=== PATIENT | male | born 1955 | race Caucasian/White ===

== ENCOUNTER 2017-05-15 11:09 | Emergency (ER) | payer BC ==
[2017-05-15 11:27] VITALS: BP 130/83
[2017-05-15] MEDS ORDERED: Colchicine 0.6 MG Tab PO ONE ×2 (12:01→12:10)
[2017-05-15] MEDS ORDERED: predniSONE 20 MG Tab PO ONE (12:01)
--- NOTE | 2017-05-15 12:08 | EDM.PDOC ---
ED HPI GENERAL MEDICAL PROBLEM - General Chief Complaint: Lower Extremity Injury/Pain Stated Complaint: GOUT Time Seen by Provider: 05/15/17 11:39 Source of Information: Reports: Patient History Limitations: Reports: No Limitations - History of Present Illness INITIAL COMMENTS - FREE TEXT/NARRATIVE: Patient is a 62-year-old male with a history of type 2 diabetes, gout, traumatic brain injury, hypertension, and hypercholesterolemia. Patient states this past week noticed some pain and redness to the right great toe that has extended to the dorsal aspect of foot. Findings consistent for gout. He's had similar symptoms in the past. Last gout attack occurred to left great toe. Last episode was December 2016. Normally patient takes colchicine and prednisone for resolution of gout. Patient has decreased his red meat intake. Denies any alcohol use. Denies any fever, chills, nausea/vomiting, open sores to his feet, or any additional complaints. Right Feet Pain Score (Numeric/FACES): 8 - Related Data Allergies Allergy/AdvReac Type Severity Reaction Status Date / Time No Known Allergies Allergy Verified 12/28/15 13:32 Home Meds: Home Meds Aspirin [Halfprin] 81 mg PO DAILY 05/15/17 [History] Colchicine 0.6 mg PO ONETIME #1 capsule 05/15/17 [Rx] Insulin Glarg,Human.Rec.Analog [LantUS Solostar] 25 unit INJECT DAILY 05/15/17 [ History] Levothyroxine [Synthroid] 112 mcg PO DAILY 05/15/17 [History] Lisinopril 5 mg PO DAILY 05/15/17 [History] Pravastatin [Pravachol] 40 mg PO DAILY 05/15/17 [History] Prednisone [IMW: predniSONE] 40 mg PO WITHBREAKFAST #10 tab 05/15/17 [Rx] Past Medical History Cardiovascular History: Reports: High Cholesterol, Hypertension Respiratory History: Reports: Other (See Below) Other Respiratory History: 2 pneumonthorax Neurological History: Reports: Other (See Below) Other Neuro History: traumatic brain injury from a fall Psychiatric History: Reports: Depression Endocrine/Metabolic History: Reports: Diabetes, Type II - Past Surgical History Musculoskeletal Surgical History: Reports: Other (See Below) Social & Family History - Tobacco Use Smoking Status *Q: Former Smoker Used Tobacco, but Quit: Yes Month Tobacco Last Used: 20 - Caffeine Use Caffeine Use: Reports: Coffee, Soda - Recreational Drug Use Recreational Drug Use: No Review of Systems - Review of Systems Review Of Systems: ROS reveals no pertinent complaints other than HPI. ED EXAM, GENERAL - Physical Exam Exam: See Below Exam Limited By: No Limitations General Appearance: Alert, WD/WN, No Apparent Distress Ears: Hearing Grossly Normal Nose: Normal Inspection Throat/Mouth: Normal Voice, No Airway Compromise Neck: Normal Inspection, Supple Respiratory/Chest: No Respiratory Distress, Lungs Clear, Normal Breath Sounds, No Accessory Muscle Use, Chest Non-Tender Cardiovascular: Normal Peripheral Pulses, Regular Rate, Rhythm Peripheral Pulses: 2+: Radial (R), Posterior Tibial (L), Posterior Tibial (R) GI/Abdominal: Normal Bowel Sounds Extremities: Other (Right foot: Mild redness noted to the right great toe and dorsum of the foot. Minimal swelling. Pain with palpation and movement of the great toe. No open sores present.) Neurological: Alert, Oriented, CN II-XII Intact, Normal Cognition, No Motor/ Sensory Deficits Psychiatric: Normal Affect, Normal Mood Skin Exam: Warm, Dry, Intact, No Rash Course - Vital Signs Last Recorded V/S: Last Vital Signs Temp 97.8 F 05/15/17 11:26 Pulse 86 05/15/17 11:26 Resp 20 05/15/17 11:26 BP 130/83 05/15/17 11:26 Pulse Ox 95 05/15/17 11:26 - Orders/Labs/Meds Meds: Medications Discontinued Medications Generic Name Dose Route Start Last Admin Trade Name Sharlene PRN Reason Stop Dose Admin Colchicine 0.6 mg 05/15/17 12:01 05/15/17 12:10 Colcrys PO 05/15/17 12:02 0.6 mg ONETIME ONE Administration Colchicine 0.6 mg 05/15/17 12:10 05/15/17 12:23 Colcrys PO 05/15/17 12:11 0.6 mg ONETIME ONE Administration Prednisone 40 mg 05/15/17 12:01 05/15/17 12:11 Prednisone PO 05/15/17 12:02 40 mg ONETIME ONE Administration - Re-Assessments/Exams Free Text/Narrative Re-Assessment/Exam: Findings on examination consistent for gout. He has had similar symptoms consistent for gout. No lab work will be obtained. Ordered prednisone 40mgPO and colchicine 1.2 mg po. Patient will be discharged home with a prescription for prednisone and also colchicine 0.6 mg 1 tablet to take 2 hours later upon discharge from the E.D. Departure - Departure Time of Disposition: 12:08 Disposition: Home, Self-Care 01 Condition: Good Clinical Impression: Gout attack Qualifiers: Gout site: foot Gout etiology: unspecified cause Laterality: right Qualified Code(s): M10.9 - Gout, unspecified - Discharge Information Prescriptions: Colchicine 0.6 mg PO ONETIME #1 capsule Prednisone [IMW: predniSONE] 40 mg PO WITHBREAKFAST #10 tab Instructions: Gout, [id number] Referrals: [place] Christian PA-C [Primary Care Provider] - Forms: ED Department Discharge Additional Instructions: Take the prednisone 40 mg every a.m. for the next 5 days. I provided a perception for colchicine 0.6 mg one tab by mouth 2 hours upon discharge from the ED today. This is a one-time dose. Refrain from any activities that cause worsening pain. Take both medications with food and plenty of water. Blood sugar will elevate with taking the prednisone please monitor. Follow-up with PCP this coming week if symptoms have not drastically improved in 2-3 days. Follow-up with your PCP to discuss starting allopurinol. Refrain from Red meat, seafood, alcohol, beer, wine, hard liquor, food/drinks that have high fructose corn syrup. Return to the ED as needed for any new or worsening symptoms.
== END 2017-05-15 12:33 | disposition home or self-care (01) ==
LOC: JD.ED 11:09
DX: M10.9 Gout, unspecified (principal); E78.00 Pure hypercholesterolemia, unspecified; I10 Essential (primary) hypertension; E11.9 Type 2 diabetes mellitus without complications; Z79.82 Long term (current) use of aspirin; Z79.4 Long term (current) use of insulin; Z79.899 Other long term (current) drug therapy; Z87.891 Personal history of nicotine dependence
CPT/HCPCS: 99283; A9270

== ENCOUNTER 2017-08-15 11:30 | Emergency (ER) | payer BC ==
[2017-08-15 11:45] VITALS: BP 141/87
--- NOTE | 2017-08-15 12:14 | EDM.PDOC ---
ED HPI GENERAL MEDICAL PROBLEM - General Chief Complaint: Lower Extremity Injury/Pain Stated Complaint: RT FOOT/ANKLE PAIN Time Seen by Provider: 08/15/17 12:13 Source of Information: Reports: Patient History Limitations: Reports: No Limitations - History of Present Illness INITIAL COMMENTS - FREE TEXT/NARRATIVE: 62-year-old male presents to the ED with severe pain and swelling of his right ankle over the last 4 days. No known injuries. History of gout many times in the past. Currently on allopurinol 100 mg a day which is likely an insufficient dose for him. He has been eating more red meat over the holidays particularly steak or hamburger from [employer]. In the past he reports his blood sugars do not seem to dramatically increase while on prednisone. Comes in in a wheelchair and using crutches to ambulate. Onset: Gradual (Started 4 days ago) Onset Date: 08/11/17 Duration: Day(s): Location: Reports: Lower Extremity, Right (Right lower extremity primarily the ankle around the Achilles tendon i.e. the calcaneal talar joint.) Quality: Reports: Ache, Sharp, Stabbing Severity: Severe (Pain is currently 8 out of 10.) Improves with: Reports: Rest Worsens with: Reports: Movement Context: Reports: Other (Spontaneous occurrence). Denies: Activity, Exercise, Lifting, Sick Contact, Trauma Associated Symptoms: Reports: No Other Symptoms Treatments [employer]: Reports: Other (see below) (Did take Motrin the last few days.) Right Feet Pain Score (Numeric/FACES): 7 - Related Data Allergies Allergy/AdvReac Type Severity Reaction Status Date / Time No Known Allergies Allergy Verified 12/28/15 13:32 Home Meds: Home Meds Aspirin [Halfprin] 81 mg PO DAILY 05/15/17 [History] Insulin Glarg,Human.Rec.Analog [LantUS Solostar] 25 unit INJECT DAILY 05/15/17 [ History] Levothyroxine [Synthroid] 112 mcg PO DAILY 05/15/17 [History] Lisinopril 5 mg PO DAILY 05/15/17 [History] Pravastatin [Pravachol] 40 mg PO DAILY 05/15/17 [History] Allopurinol [Zyloprim] 100 mg PO DAILY 08/15/17 [History] Colchicine 0.6 mg PO Q1H #2 capsule 08/15/17 [Rx] Diclofenac Sodium [Voltaren] 50 mg PO ONETIME #24 tab.ec 08/15/17 [Rx] Prednisone [IJD: predniSONE] 20 mg PO BID #11 tab 08/15/17 [Rx] oxyCODONE HCl/Acetaminophen [Percocet 5-325 mg Tablet] 1 - 2 each PO Q4H PRN # 14 tablet 08/15/17 [Rx] Past Medical History Cardiovascular History: Reports: High Cholesterol, Hypertension Respiratory History: Reports: Other (See Below) Other Respiratory History: 2 pneumonthorax Neurological History: Reports: Other (See Below) Other Neuro History: traumatic brain injury from a fall Psychiatric History: Reports: Depression Endocrine/Metabolic History: Reports: Diabetes, Type II - Past Surgical History Musculoskeletal Surgical History: Reports: Other (See Below) Social & Family History - Tobacco Use Smoking Status *Q: Former Smoker Used Tobacco, but Quit: Yes Month Tobacco Last Used: 20 - Caffeine Use Caffeine Use: Reports: Coffee, Tea - Recreational Drug Use Recreational Drug Use: No - Living Situation & Occupation Living situation: Reports: Occupation: Retired Review of Systems - Review of Systems Review Of Systems: See Below Constitutional: Reports: No Symptoms Eyes: Reports: No Symptoms Ears: Reports: Other Nose: Reports: No Symptoms Mouth/Throat: Reports: No Symptoms Respiratory: Reports: Shortness of Breath (On exertion.) Cardiovascular: Denies: Chest Pain GI/Abdominal: Reports: No Symptoms Genitourinary: Reports: Other (Frequency with nocturia 3 or 4.) Musculoskeletal: Reports: Back Pain, Joint Pain (Hip pain) Skin: Reports: No Symptoms Neurological: Reports: Confusion (Ever since he had a significant closed injury from a fall off a house he has some transient confusion and problems with short- term memory.) Psychiatric: Reports: Mood Lability ED EXAM, GENERAL - Physical Exam Exam: See Below Exam Limited By: No Limitations General Appearance: Alert, WD/WN, No Apparent Distress (For a stoic fellow.) Respiratory/Chest: No Respiratory Distress, Normal Breath Sounds, No Accessory Muscle Use, Chest Non-Tender, Respiratory Distress (Tachypnea At rest. O2 sats 94%.) Cardiovascular: Normal Peripheral Pulses, Regular Rate, Rhythm, No Edema, No Murmur Peripheral Pulses: 1+: Posterior Tibial (L), Posterior Tibial (R), Dorsalis Pedis (L), Dorsalis Pedis (R) GI/Abdominal: Normal Bowel Sounds, Soft, Non-Tender, No Organomegaly, Other Extremities: Other (Examination of his right lower extremity shows marked swelling of the lateral aspect of his right ankle. Pain is localized to the calcaneal talar joint. Particularly adjacent to the Achilles tendon. Any movement of this joint causes severe pain.) Neurological: Alert ( Areas markedly warm to palpation without overlying erythema.), Oriented, CN II-XII Intact, Normal Cognition, Other. No: Normal Gait Psychiatric: Normal Affect (Patient cannot weight-bear on his right ankle at this time due to pain), Normal Mood Skin Exam: Warm, Dry, Intact, Normal Color, No Rash Course - Vital Signs Last Recorded V/S: Last Vital Signs Temp 36.6 C 08/15/17 11:44 Pulse 76 08/15/17 11:44 Resp 20 08/15/17 11:44 BP 141/87 H 08/15/17 11:44 Pulse Ox 94 L 08/15/17 11:44 - Orders/Labs/Meds Meds: Medications Discontinued Medications Generic Name Dose Route Start Last Admin Trade Name Freq PRN Reason Stop Dose Admin Colchicine 0.6 mg 08/15/17 12:25 Colcrys PO 08/15/17 12:26 ONETIME ONE - Radiology Interpretation Free Text/Narrative:: 62-year-old male presents the ED with acute onset of severe pain and swelling right ankle over the last 4 days. No known injuries. Examination reveals marked inflammation coming from the calcaneal talar joint. He has had gout many times in the past and this is what he appears to be suffering from. Plan colchicine 0.6 mg by mouth every hour for 3 consecutive hours. Prednisone 20 mg now then 20 mg twice a day for 5 more days. Voltaren 50 mg 3 times a day for 8 days. Percocet 5/3/25 milligrams tabs one or 2 every 4-6 hours for pain relief 14 tablets provided. Also advised to increase his allopurinol to 300 mg daily in about 10 days' time once the acute gout attack has settled. Ideally would be pertinent for him to follow-up in clinic and have uric acid levels checked and renal function. Departure - Departure Time of Disposition: 12:28 Disposition: Home, Self-Care 01 Condition: Fair Clinical Impression: Gout attack Qualifiers: Gout site: foot Gout etiology: unspecified cause Laterality: right Qualified Code(s): M10.9 - Gout, unspecified - Discharge Information Prescriptions: Colchicine 0.6 mg PO Q1H #2 capsule Diclofenac Sodium [Voltaren] 50 mg PO ONETIME #24 tab.ec oxyCODONE HCl/Acetaminophen [Percocet 5-325 mg Tablet] 1 - 2 each PO Q4H PRN # 14 tablet PRN Reason: pain relief. Prednisone [IJD: predniSONE] 20 mg PO BID #11 tab Referrals: [place] Christian PA-C [Primary Care Provider] - Forms: ED Department Discharge Additional Instructions: Evaluation in the emergency room today in regards to acute onset of gout in right ankle 4 days. History of recurrent bouts of gout over the last 3-4 years. Treatment is colchicine tablet 0.6 mg 1 every hour for 3 consecutive hours. Initial tablet was provided in the ED. Second medication is prednisone 20 mg now and then with breakfast and supper for 5 more days to reduce inflammation. Voltaren 50 mg 3 times a day for the next 8 days to reduce inflammation and pain. Pain pill is Percocet 12/15/24 one or 2 every 4-6 hours for pain relief until the anti-inflammatories are working well over the next 48 hours. After 10 days I would suggest increasing her allopurinol to 300 mg daily to try and prevent the gout from coming back again. Discussed this with your personal physician on next visit.
[2017-08-15] MEDS ORDERED: Colchicine 0.6 MG Tab PO ONE (12:25)
== END 2017-08-15 12:55 | disposition home or self-care (01) ==
LOC: JD.ED 11:30
DX: M10.9 Gout, unspecified (principal); E78.00 Pure hypercholesterolemia, unspecified; I10 Essential (primary) hypertension; E11.9 Type 2 diabetes mellitus without complications; Z79.82 Long term (current) use of aspirin; Z79.899 Other long term (current) drug therapy; Z87.891 Personal history of nicotine dependence
CPT/HCPCS: 99283; A9270

== ENCOUNTER 2020-07-23 22:35 | Emergency (ER) | payer MEDICARE, OTHER ==
[2020-07-23] MEDS ORDERED: Sodium Chloride 0.9% 10 ML Syringe FLUSH PRN (23:09)
--- NOTE | 2020-07-23 23:15 | EDM.PDOC ---
<Anant Lebron Neha - Last Filed: 07/24/20 04:12> ED HPI GENERAL MEDICAL PROBLEM - General Chief Complaint: Fever Stated Complaint: FEVER SOB Time Seen by Provider: 07/23/20 23:08 Source of Information: Reports: Patient History Limitations: Reports: No Limitations - History of Present Illness INITIAL COMMENTS - FREE TEXT/NARRATIVE: 65-year-old male presents to the ED for evaluation of a fever that developed after dinnertime today. Temperature at home has been anywhere from 90.8 0.6- 98.9. He denies any chills. He has developed subjective dyspnea at rest. Denies any wheeze or cough at this time. He has no known Covid 19 exposure although his next-door neighbor last week from COVID-19 illness. He denies any dysuria urgency frequency. Denies any diarrhea. To his knowledge he is not been exposed to anybody with COVID-19 illness. He came to the ED out of concern for possible developing COVID-19 illness. O2 sats at this time are 97% on room air and he appears to be in no respiratory distress. The monitor intermittently does show trigeminy pattern with PVCs. Blood pressure is 101 on 33. Of note the patient is a Type 2 insulin-dependent diabetic. Patient did receive 600 mg of ibuprofen approximately 2100 hrs. tonight. Onset: Today, Sudden Onset Date: 07/23/20 Onset Time: 12:00 Duration: Hour(s):, Constant Location: Reports: Generalized (Development of fever with no chills this afternoon and this evening.) Quality: Reports: Other Severity: Moderate (Nuys any myalgia. Feels a little lightheaded and dizzy) Improves with: Reports: Medication (Fever may be coming down after Motrin was given 2 hours ago) Worsens with: Reports: None Context: Reports: Other (Fontan's occurrence). Denies: Activity, Exercise, Lifting, Sick Contact, Trauma Associated Symptoms: Reports: No Other Symptoms, Fever/Chills, Shortness of Breath. 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 tonight.) - Related Data Allergies Allergy/AdvReac Type Severity Reaction Status Date / Time No Known Allergies Allergy Verified 07/23/20 22:46 Home Meds: Home Meds Aspirin [Halfprin] 81 mg PO DAILY 05/15/17 [History] Insulin Glarg,Human.Rec.Analog [LantUS Solostar] 25 unit INJECT DAILY 05/15/17 [History] Levothyroxine [Synthroid] 112 mcg PO DAILY 05/15/17 [History] Lisinopril 5 mg PO DAILY 05/15/17 [History] Pravastatin [Pravachol] 40 mg PO DAILY 05/15/17 [History] Allopurinol [Zyloprim] 100 mg PO DAILY 08/15/17 [History] Doxycycline [Vibra-Tabs] 100 mg PO Q12HR #20 tab 07/24/20 [Rx] Past Medical History HEENT History: Reports: Hard of Hearing, Impaired Vision Cardiovascular History: Reports: High Cholesterol, Hypertension Respiratory History: Reports: Other (See Below) Other Respiratory History: 2 pneumonthorax Gastrointestinal History: Reports: None Genitourinary History: Reports: None Musculoskeletal History: Reports: Gout Neurological History: Reports: Other (See Below) Other 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 Immunologic History: Reports: None Oncologic (Cancer) History: Reports: None Dermatologic History: Reports: None - Infectious Disease History Infectious Disease History: Reports: Chicken Pox, Mumps - Past Surgical History Head Surgeries/Procedures: Reports: None HEENT Surgical History: Reports: Tonsillectomy GI Surgical History: Reports: None Male Surgical History: Reports: None Musculoskeletal Surgical History: Reports: Other (See Below) Other Musculoskeletal Surgeries/Procedures:: right femur fracture-fractured ribs. Patient fell from a second story of his home in 2006 and suffered I believe fractures to 10 out of 12 ribs on one side and multiple fractures in the other side with flail chest. He broke his right femur and hip. He had a traumatic brain injury at that time as well. He spent I believe over 3 months in hospital and then several months in rehab before he was able to come home. Social & Family History - Family History Family Medical History: No Pertinent Family History - Tobacco Use Tobacco Use Status *Q: Never Tobacco User Used Tobacco, but Quit: Yes Month/Year Tobacco Last Used: 08/1969 - Caffeine Use Caffeine Use: Reports: Coffee, Soda - Recreational Drug Use Recreational Drug Use: No - Living Situation & Occupation Living situation: Reports: Occupation: Retired ED ROS GENERAL - Review of Systems Review Of Systems: See Below Constitutional: Reports: Fever. Denies: Chills, Malaise, Weakness, Fatigue, Decreased Appetite, Weight Loss HEENT: Reports: Glasses (Reading.) Respiratory: Reports: Shortness of Breath (No shortness of breath today. 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 He reports that he can swim the entire length of the pool in about 43 seconds while holding his breath.). Denies: Wheezing, Pleuritic Chest Pain, Cough, Sputum, Hemoptysis Cardiovascular: Reports: Blood Pressure Problem, Lightheadedness. Denies: Chest Pain, Claudication (Tends to run on the low side.), Dyspnea on Exertion, Edema, Orthopnea, Palpitations Endocrine: Reports: No Symptoms GI/Abdominal: Reports: No Symptoms. Denies: Constipation, Diarrhea, Nausea, Vomiting : Reports: No Symptoms, Other (He states he has good urinary flow and nocturia maybe once.) Musculoskeletal: Reports: Other (Low back pain neck pain shoulder pain and knee pain once in a while. Occasionally his right hip will give him some pain as well.) Skin: Reports: No Symptoms Neurological: Reports: Other (Patient did suffer a traumatic brain injury in 2006 after he fell from the second story of his home. He has trouble primarily with numbers and short-term memory.). Denies: Confusion, Dizziness, Headache, Numbness, Paresthesia, Seizure, Syncope, Tingling, Tremors, Difficulty Walking, Weakness Psychiatric: Reports: No Symptoms Hematologic/Lymphatic: Reports: No Symptoms Immunologic: Reports: No Symptoms ED EXAM, GENERAL - Physical Exam Exam: See Below Exam Limited By: No Limitations General Appearance: Alert, WD/WN, No Apparent Distress, Other (He recollects me very well. Temperature is 36.1 with a heart rate of 120 with frequent PVCs almost in a trigeminal pattern intermittently. Respiratory of 16 with O2 sats of 97% room air BP 133/84.) Eye Exam: Bilateral Eye: Normal Inspection (No scleral icterus or blepharal pallor.), PERRL Ears: Normal External Exam, Normal TMs Throat/Mouth: Normal Inspection, Normal Lips, Normal Oropharynx, Other Head: Atraumatic, Normocephalic, Other (Is moist) Neck: Normal Inspection ( no overt signs of any recent head or facial trauma), Limited Range of Motion. No: Carotid Bruit, Lymphadenopathy (L), Lymphadenopathy (R) (But is on lateral rotation with near full range of motion), Thyromegaly Respiratory/Chest: No Respiratory Distress, Lungs Clear, Normal Breath Sounds, No Accessory Muscle Use. No: Rales, Rhonchi, Wheezing Cardiovascular: Normal Peripheral Pulses, Regular Rate, Rhythm, No Edema, No Gallop, No Murmur, No Rub Peripheral Pulses: 2+: Posterior Tibial (L), Posterior Tibial (R), Dorsalis Pedis (L), Dorsalis Pedis (R), 3+: Carotid (L), Carotid (R) GI/Abdominal: Normal Bowel Sounds, Soft, Non-Tender, No Organomegaly, No Mass, Pelvis Stable, Other (No surgical scars.). No: Guarding, Rigid, Rebound (Male) Exam: No Hernia Back Exam: Normal Inspection, Full Range of Motion. No: CVA Tenderness (L), CVA Tenderness (R) Extremities: Normal Inspection, Normal Range of Motion, Non-Tender, No Pedal Edema, Other Neurological: Alert, Oriented (Minutes of mild arthritic changes both knees.), CN II-XII Intact, Normal Cognition Psychiatric: Normal Affect, Normal Mood Skin Exam: Warm, Dry, Intact, Normal Color, No Rash, Other (She does clinically felt warm to palpation to me.) #1 Interpretation EKG Date: 07/23/20 Time: 23:24 (Frequent unifocal PVCs quite Kasie pattern on this ECG) Rhythm: Other (Sinus tachycardia) Rate (Beats/Min): 112 [place]: Normal P-Wave: Present (First-degree AV block .) QRS: Other (Decreased voltage in limb and precordial leads. There is mild early R wave transition V2 consider septal hypertrophy pattern. There are Q waves leads II, III and aVF consider old inferior wall myocardial infarction.) QT: Prolonged (Minimally prolonged) Course - Radiology Interpretation Free Text/Narrative:: 65-year-old male presents to the ED for evaluation of a fever identified at home with temperatures of 98.6-98.9 since noon hour today. No chills. Subjective shortness of breath. No known exposure to COVID-19 illness although his neighbor did from COVID-19 illness last week. Examination is benign. Lungs are clear clinically he does feel warm to palpation but nurses recorded temperature of 36.1 it will be rechecked in half an hour. His monitor shows a trigeminal PVC pattern intermittently which seems to settled after he was settled in bed. Blood pressure is low at 101 133. Plan routine labs. Coronavirus screen will be sent out to [facility] since his oxygen levels are 95 to 97% room air. Chest x-ray will be obtained. Serum ferritin D-dimer troponin and LDH will be obtained as well. - Re-Assessments/Exams Free Text/Narrative Re-Assessment/Exam: 07/24/20 00:52 chest x-ray done portably reveals slightly hyperinflated lung gan. There is an infiltrate in the right base of the right lower lung. Prominence of the right pulmonary artery appreciated. Cardiac silhouette is upper limits of normal. Prominence of the thoracic aorta appreciated suggesting possible mild aneurysm. Appears to be slight blunting of the left costophrenic angle however. 07/24/20 00:55 Hematology reveals a normal white count at 9.55. Differential shows 70% neutrophils no bands cells reported. Hemoglobin 13.7 with hematocrit of 42.2. Platelet count is 331,000. PT is 11.2 with an INR of 1.05. PTT is 26.7 D-dimer is mildly elevated at 0.86. Sodium 137 with potassium of 3.6. Chloride 103 with a bicarb of 22. Anion gap is 15.6. BUN is 27 with a creatinine of 1.9. GFR is 36 i.e. stage IIIb renal insufficiency. Glucose elevated at 182. Patient is known to be a type II diabetic. Hemoglobin A1c is excellent at 6.9. Calcium is 8.7 with a magnesium of 1.8. Serum ferritin is normal at 140 liver function is normal troponin is 0.020. LDH is 97. C- reactive protein mildly elevated at 2.0. BNP is 150. Very minimally elevated total protein 7.3 with an albumin fraction of 3.6. TSH is 2.48. Urinalysis is pending. Renal function is not good enough to tolerate CT pulmonary angiogram to rule out DVT. Patient's O2 sats are 97% on room air and it is felt highly unlikely that he has a DVT. Worrisome changes are for that of developing COVID- 19 illness which would elevate his D-dimer. COVID-19 screen will be a send out to public health since his O2 sats are maintained in the upper 90s. 07/24/20 02:17 patient was finally able to pass a little bit of urine and I was able to dip it in the ED. It reveals no signs of leukocyte esterase or blood to suggest an underlying infective process. Due to the minimal infiltrate right base of lung I am going to place him on antibiotic although he may well be brewing COVID-19 illness. Of note there are no other chest x-rays in the system to compare to. This could be also mild scarring from his previous traumatic chest wall injury. I am going to place him on doxycycline 100 mg twice daily for 10 days to cover for atypical organisms that may cause pneumonia. Initial dose will be provided in the ED. did advise that if his COVID-19 screen returns positive he is to return to the ED as he is a candidate for IV Regeneron medication which we have available the last few days. This may prevent more serious form of the illness. O2 sats at the time of discharge were 97% room air Departure - Departure Time of Disposition: 02:21 Disposition: Home, Self-Care 01 Condition: Fair Clinical Impression: Acute febrile illness Pneumonia Qualifiers: Pneumonia type: due to unspecified organism Laterality: right Lung location: lower lobe of lung Qualified Code(s): J18.9 - Pneumonia, unspecified organism - Discharge Information *PRESCRIPTION DRUG MONITORING PROGRAM REVIEWED*: Not Applicable *COPY OF PRESCRIPTION DRUG MONITORING REPORT IN PATIENT YG: Not Applicable Prescriptions: Doxycycline [Vibra-Tabs] 100 mg PO Q12HR #20 tab Instructions: COVID-19 Frequently Asked Questions, COVID-19, Fever, Adult, [id number] Referrals: Mario Hughes MD [Primary Care Provider] - Forms: ED Department Discharge Additional Instructions: Evaluation in the emergency room tonight in regards to development of acute onset of fever today after dinnertime. Temperatures seem to be gradually go up as the day went on. No other signs of illness such as cough sputum production trouble passing her water no diarrhea no vomiting. Concern is for possible COVID-19 illness and COVID-19 screen has been carried out and sent to public health in the morning. Results should be available usually within 48 hours time. In the meantime you need to self quarantine at home and no one should visit your home until we know for sure whether or not the COVID-19 is negative. If it is positive you will have to self quarantine for 14 days. If it turns positive I want you to return to the emergency room as you are a candidate for IV Regeneron which is a monoclonal antibody x2 against the COVID-19 virus. This may prevent you from developing some severe form of COVID-19 illness. Urinalysis proved to be negative for any signs of infection. Lab work revealed a normal white count at this point time and no other markers were positive for COVID-19 illness at this time. However it is very early in your disease process. There is a minimal infiltrate base of the right lung and consideration of developing pneumonia is present. This could represent early COVID-19 illness as well. However I am going to have you take antibiotic doxycycline 100 mg twice daily for the next 10 days to clear up any bacterial pneumonia that may be developing. Continue Motrin 600 mg every 6 hours as needed for fever relief. Again if your COVID-19 screen returns positive you would need to return to the emergency department. We will either call you or public [facility] department will call you with the result likely on Tuesday. Sepsis Event Note (ED) - Evaluation Sepsis Screening Result: No Definite Risk <Francia Crowley V - Last Filed: 07/24/20 12:37> Course - Vital Signs Last Recorded V/S: Last Vital Signs Temp 97.0 F 07/23/20 22:51 Pulse 97 07/24/20 02:30 Resp 18 07/24/20 02:30 BP 133/84 07/23/20 22:51 Pulse Ox 96 07/24/20 02:30 - Orders/Labs/Meds Orders: Active Orders 24 hr Category Date Time Status Chest 1V Frontal [CR] Stat Exams 07/23/20 23:09 Taken CORONAVIRUS COVID-19 PCR PHL Stat Lab 07/24/20 01:15 Received CULTURE BLOOD [BC] Stat Lab 07/23/20 23:30 Results CULTURE BLOOD [BC] Stat Lab 07/23/20 23:43 Received Blood Culture x2 Reflex Set [OM.PC] Stat Oth 07/23/20 23:09 Ordered Peripheral IV Insertion Adult [OM.PC] Stat Oth 07/23/20 23:10 Ordered Labs: Laboratory Tests 07/23/20 07/23/20 07/23/20 Range/Units 23:30 23:30 23:30 WBC 9.55 H (4.23-9.07) K/mm3 RBC 4.86 (4.63-6.08) M/mm3 Hgb 13.7 (13.7-17.5) gm/dl Hct 42.2 (40.1-51.0) % MCV 86.8 (79.0-92.2) fl MCH 28.2 (25.7-32.2) pg MCHC 32.5 (32.2-35.5) g/dl RDW Std Deviation 49.9 H (35.1-43.9) fL Plt Count 331 D (163-337) K/mm3 MPV 9.8 (9.4-12.3) fl Neut % (Auto) 78.0 H (34.0-67.9) % Lymph % (Auto) 11.3 L (21.8-53.1) % [place] % (Auto) 8.2 (5.3-12.2) % Eos % (Auto) 2.1 (0.8-7.0) Baso % (Auto) 0.2 (0.1-1.2) % Neut # (Auto) 7.45 H (1.78-5.38) K/mm3 Lymph # (Auto) 1.08 L (1.32-3.57) K/mm3 [place] # (Auto) 0.78 (0.30-0.82) K/mm3 Eos # (Auto) 0.20 (0.04-0.54) K/mm3 Baso # (Auto) 0.02 (0.01-0.08) K/mm3 PT 11.2 (9.7-12.0) SECONDS INR 1.05 APTT 26.7 (21.7-31.4) SECONDS D-Dimer, Quantitative (0.19-0.50) mg/L Sodium 137 (136-145) mEq/L Potassium 3.6 (3.5-5.1) mEq/L Chloride 103 (98-107) mEq/L Carbon Dioxide 22 (21-32) mEq/L Anion Gap 15.6 H (5-15) BUN 27 H (7-18) mg/dL Creatinine 1.9 H (0.7-1.3) mg/dL Est Cr Clr Drug Dosing 43.86 mL/min Estimated GFR (MDRD) 36 (>60) mL/min BUN/Creatinine Ratio 14.2 (14-18) Glucose 182 H (80-115) mg/dL Hemoglobin A1c (4.50-6.20) % Calcium 8.7 (8.5-10.1) mg/dL Magnesium 1.8 (1.8-2.4) mg/dl Ferritin (26-388) ng/ml Total Bilirubin 0.5 (0.2-1.0) mg/dL AST 17 (15-37) U/L ALT 35 (16-63) U/L Alkaline Phosphatase 93 (46-116) U/L Lactate Dehydrogenase 97 (85-227) U/L Troponin I 0.020 (0.00-0.056) ng/mL C-Reactive Protein 2.0 H* (<1.0) mg/dL NT-Pro-B Natriuret Pep (0-125) pg/mL Total Protein 7.3 (6.4-8.2) g/dl Albumin 3.6 (3.4-5.0) g/dl Globulin 3.7 gm/dL Albumin/Globulin Ratio 1.0 (1-2) TSH 3rd Generation (0.358-3.74) uIU/mL Urine Color (Yellow) Urine Appearance (Clear) Urine pH (5.0-8.0) Ur Specific [place] (1.005-1.030) Urine Protein (Negative) Urine Glucose (UA) (Negative) Urine Ketones (Negative) Urine Occult Blood (Negative) Urine Nitrite (Negative) Urine Bilirubin (Negative) Urine Urobilinogen (0.2-1.0) Ur Leukocyte Esterase (Negative) U Hyaline Cast (Auto) (0-5) /lpf Urine RBC (0-5) /hpf Urine WBC (0-5) /hpf Ur Squamous Epith Cells (0-5) /hpf Amorphous Sediment (NOT SEEN) /hpf Urine Bacteria (FEW) /hpf Urine Mucus (FEW) /hpf 07/23/20 07/23/20 07/23/20 Range/Units 23:30 23:30 23:30 WBC (4.23-9.07) K/mm3 RBC (4.63-6.08) M/mm3 Hgb (13.7-17.5) gm/dl Hct (40.1-51.0) % MCV (79.0-92.2) fl MCH (25.7-32.2) pg MCHC (32.2-35.5) g/dl RDW Std Deviation (35.1-43.9) fL Plt Count (163-337) K/mm3 MPV (9.4-12.3) fl Neut % (Auto) (34.0-67.9) % Lymph % (Auto) (21.8-53.1) % [place] % (Auto) (5.3-12.2) % Eos % (Auto) (0.8-7.0) Baso % (Auto) (0.1-1.2) % Neut # (Auto) (1.78-5.38) K/mm3 Lymph # (Auto) (1.32-3.57) K/mm3 [place] # (Auto) (0.30-0.82) K/mm3 Eos # (Auto) (0.04-0.54) K/mm3 Baso # (Auto) (0.01-0.08) K/mm3 PT (9.7-12.0) SECONDS INR APTT (21.7-31.4) SECONDS D-Dimer, Quantitative 0.86 H (0.19-0.50) mg/L Sodium (136-145) mEq/L Potassium (3.5-5.1) mEq/L Chloride (98-107) mEq/L Carbon Dioxide (21-32) mEq/L Anion Gap (5-15) BUN (7-18) mg/dL Creatinine (0.7-1.3) mg/dL Est Cr Clr Drug Dosing mL/min Estimated GFR (MDRD) (>60) mL/min BUN/Creatinine Ratio (14-18) Glucose (80-115) mg/dL Hemoglobin A1c (4.50-6.20) % Calcium (8.5-10.1) mg/dL Magnesium (1.8-2.4) mg/dl Ferritin 140 (26-388) ng/ml Total Bilirubin (0.2-1.0) mg/dL AST (15-37) U/L ALT (16-63) U/L Alkaline Phosphatase (46-116) U/L Lactate Dehydrogenase (85-227) U/L Troponin I (0.00-0.056) ng/mL C-Reactive Protein (<1.0) mg/dL NT-Pro-B Natriuret Pep 150 H (0-125) pg/mL Total Protein (6.4-8.2) g/dl Albumin (3.4-5.0) g/dl Globulin gm/dL Albumin/Globulin Ratio (1-2) TSH 3rd Generation (0.358-3.74) uIU/mL Urine Color (Yellow) Urine Appearance (Clear) Urine pH (5.0-8.0) Ur Specific [place] (1.005-1.030) Urine Protein (Negative) Urine Glucose (UA) (Negative) Urine Ketones (Negative) Urine Occult Blood (Negative) Urine Nitrite (Negative) Urine Bilirubin (Negative) Urine Urobilinogen (0.2-1.0) Ur Leukocyte Esterase (Negative) U Hyaline Cast (Auto) (0-5) /lpf Urine RBC (0-5) /hpf Urine WBC (0-5) /hpf Ur Squamous Epith Cells (0-5) /hpf Amorphous Sediment (NOT SEEN) /hpf Urine Bacteria (FEW) /hpf Urine Mucus (FEW) /hpf 07/23/20 07/23/20 07/24/20 Range/Units 23:30 23:30 02:11 WBC (4.23-9.07) K/mm3 RBC (4.63-6.08) M/mm3 Hgb (13.7-17.5) gm/dl Hct (40.1-51.0) % MCV (79.0-92.2) fl MCH (25.7-32.2) pg MCHC (32.2-35.5) g/dl RDW Std Deviation (35.1-43.9) fL Plt Count (163-337) K/mm3 MPV (9.4-12.3) fl Neut % (Auto) (34.0-67.9) % Lymph % (Auto) (21.8-53.1) % [place] % (Auto) (5.3-12.2) % Eos % (Auto) (0.8-7.0) Baso % (Auto) (0.1-1.2) % Neut # (Auto) (1.78-5.38) K/mm3 Lymph # (Auto) (1.32-3.57) K/mm3 [place] # (Auto) (0.30-0.82) K/mm3 Eos # (Auto) (0.04-0.54) K/mm3 Baso # (Auto) (0.01-0.08) K/mm3 PT (9.7-12.0) SECONDS INR APTT (21.7-31.4) SECONDS D-Dimer, Quantitative (0.19-0.50) mg/L Sodium (136-145) mEq/L Potassium (3.5-5.1) mEq/L Chloride (98-107) mEq/L Carbon Dioxide (21-32) mEq/L Anion Gap (5-15) BUN (7-18) mg/dL Creatinine (0.7-1.3) mg/dL Est Cr Clr Drug Dosing mL/min Estimated GFR (MDRD) (>60) mL/min BUN/Creatinine Ratio (14-18) Glucose (80-115) mg/dL Hemoglobin A1c 6.90 H (4.50-6.20) % Calcium (8.5-10.1) mg/dL Magnesium (1.8-2.4) mg/dl Ferritin (26-388) ng/ml Total Bilirubin (0.2-1.0) mg/dL AST (15-37) U/L ALT (16-63) U/L Alkaline Phosphatase (46-116) U/L Lactate Dehydrogenase (85-227) U/L Troponin I (0.00-0.056) ng/mL C-Reactive Protein (<1.0) mg/dL NT-Pro-B Natriuret Pep (0-125) pg/mL Total Protein (6.4-8.2) g/dl Albumin (3.4-5.0) g/dl Globulin gm/dL Albumin/Globulin Ratio (1-2) TSH 3rd Generation 2.481 (0.358-3.74) uIU/mL Urine Color Yellow (Yellow) Urine Appearance Clear (Clear) Urine pH 5.5 (5.0-8.0) Ur Specific [place] > or = 1.030 (1.005-1.030) Urine Protein Negative (Negative) Urine Glucose (UA) Negative (Negative) Urine Ketones Trace H (Negative) Urine Occult Blood Negative (Negative) Urine Nitrite Negative (Negative) Urine Bilirubin 1+ H (Negative) Urine Urobilinogen 0.2 (0.2-1.0) Ur Leukocyte Esterase Negative (Negative) U Hyaline Cast (Auto) 0-5 (0-5) /lpf Urine RBC 0-5 (0-5) /hpf Urine WBC 0-5 (0-5) /hpf Ur Squamous Epith Cells 0-5 (0-5) /hpf Amorphous Sediment Few H (NOT SEEN) /hpf Urine Bacteria Few (FEW) /hpf Urine Mucus Few (FEW) /hpf Meds: Medications Discontinued Medications Generic Name Dose Route Start Last Admin Trade Name Freq PRN Reason Stop Dose Admin Doxycycline Hyclate 100 mg 07/24/20 02:18 07/24/20 02:41 Vibramycin PO 07/24/20 02:19 100 mg ONETIME ONE Administration Sodium Chloride 10 ml 07/23/20 23:09 07/23/20 23:37 Saline Flush FLUSH 10 ml ASDIRECTED PRN Administration Keep Vein Open - Re-Assessments/Exams Free Text/Narrative Re-Assessment/Exam: 07/24/20 12:36 I was called from microbiology and was notified that the patient's blood culture was growing out gram-positive cocci in chains at 11.3 hours. I did call the patient and was able to speak with his , and she states he has been sleeping and sluggish and that he just does not seem to be much better. She will bring him back to the ER for re-evaluation for the possibility of admission and IV antibiotics. Sepsis Event Note (ED) - Focused Exam Vital Signs: Vital Signs Pulse Resp Pulse Ox 07/24/20 02:30 97 18 96
[2020-07-23 23:16] VITALS: BP 133/84
[2020-07-24 00:45] LABS: HEMOGLOBIN A1C 6.9 % (4.50-6.20)
[2020-07-24] MEDS ORDERED: Doxycycline 100 MG Cap PO ONE (02:18)
[2020-07-24 02:48] VITALS: PULSE 97
--- NOTE | 2020-07-24 15:34 | CR ---
Chest: Portable view of the chest was obtained. Comparison: No prior chest x-rays available. Heart size and mediastinum are within normal limits for portable technique. Minimal linear densities are noted within the left midlung compatible with scarring or atelectasis. Lungs otherwise are clear with no acute parenchymal changes. Bony structures show nothing acute. Several old left-sided rib fractures are seen which are believed to be healed. Impression: 1. Nothing acute is seen. Diagnostic code #2
== END 2020-07-24 02:45 | disposition home or self-care (01) ==
LOC: JD.ED 22:35
DX: J18.9 Pneumonia, unspecified organism (principal); E78.00 Pure hypercholesterolemia, unspecified; I10 Essential (primary) hypertension; E11.9 Type 2 diabetes mellitus without complications; M10.9 Gout, unspecified; Z79.82 Long term (current) use of aspirin; Z79.4 Long term (current) use of insulin; Z79.899 Other long term (current) drug therapy; Z87.891 Personal history of nicotine dependence; Z20.828 Contact with and (suspected) exposure to other viral communicable diseases
CPT/HCPCS: 36415; 71045; 80053; 81001; 82728; 83036; 83615; 83735; 83880; 84443; 84484; 85025; 85379; 85610; 85730; 86140; 87040; 87184; 93005; 99285; A9270; U0002; 93010; 99284

== ENCOUNTER 2020-07-24 13:04 | Emergency (ER) | payer MEDICARE, OTHER ==
[2020-07-24 13:20] VITALS: PULSE 119
[2020-07-24] MEDS ORDERED: Sodium Chloride 0.9% 10 ML Syringe FLUSH PRN (13:41)
--- NOTE | 2020-07-24 14:35 | EDM.PDOC ---
ED HPI GENERAL MEDICAL PROBLEM - General Chief Complaint: General Stated Complaint: POSITIVE CULTURES Time Seen by Provider: 07/24/20 13:15 Source of Information: Reports: Patient, RN Notes Reviewed - History of Present Illness INITIAL COMMENTS - FREE TEXT/NARRATIVE: Pt was evaluated last evening in ED after experiencing chills, mild dyspnea. Work up was fairly unremarkable with no obvious infection source, normal CXR. Las called this past morning a few hrs ago that he has a positive blood culture, growing out "chains of G pos. cocci". He did have some chills again this morning. No definite fever. He still is not coughing, denies sore throat, current dyspnea, abd or back pain. No voiding problems and no known open skin lesions. Treatments BOAT TESTER: Reports: Other (see below) - Related Data Allergies Allergy/AdvReac Type Severity Reaction Status Date / Time No Known Allergies Allergy Verified 07/23/20 22:46 Home Meds: Home Meds Aspirin [Halfprin] 81 mg PO DAILY 05/15/17 [History] Insulin Glarg,Human.Rec.Analog [LantUS Solostar] 25 unit INJECT DAILY 05/15/17 [History] Levothyroxine [Synthroid] 112 mcg PO DAILY 05/15/17 [History] Lisinopril 5 mg PO DAILY 05/15/17 [History] Pravastatin [Pravachol] 40 mg PO DAILY 05/15/17 [History] Allopurinol [Zyloprim] 100 mg PO DAILY 08/15/17 [History] Amoxicillin 1,000 mg PO BID #30 capsule 07/24/20 [Rx] Doxycycline [Vibra-Tabs] 100 mg PO Q12HR #20 tab 07/24/20 [Rx] Past Medical History HEENT History: Reports: Hard of Hearing, Impaired Vision Cardiovascular History: Reports: High Cholesterol, Hypertension Respiratory History: Reports: Other (See Below) Other Respiratory History: 2 pneumonthorax Gastrointestinal History: Reports: None Genitourinary History: Reports: None Musculoskeletal History: Reports: Gout Neurological History: Reports: Other (See Below) Other 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 Immunologic History: Reports: None Oncologic (Cancer) History: Reports: None Dermatologic History: Reports: None - Infectious Disease History Infectious Disease History: Reports: Chicken Pox, Mumps - Past Surgical History Head Surgeries/Procedures: Reports: None HEENT Surgical History: Reports: Tonsillectomy GI Surgical History: Reports: None Male Surgical History: Reports: None Musculoskeletal Surgical History: Reports: Other (See Below) Other Musculoskeletal Surgeries/Procedures:: right femur fracture-fractured ribs. Patient fell from a second story of his home in 2006 and suffered I believe fractures to 10 out of 12 ribs on one side and multiple fractures in the other side with flail chest. He broke his right femur and hip. He had a traumatic brain injury at that time as well. He spent I believe over 3 months in hospital and then several months in rehab before he was able to come home. Social & Family History - Family History Family Medical History: No Pertinent Family History - Tobacco Use Tobacco Use Status *Q: Never Tobacco User - Caffeine Use Caffeine Use: Reports: Coffee - Recreational Drug Use Recreational Drug Use: No - Living Situation & Occupation Living situation: Reports: Occupation: Retired ED ROS GENERAL - Review of Systems Review Of Systems: See Below Constitutional: Reports: Fever, Chills HEENT: Reports: No Symptoms Respiratory: Reports: Shortness of Breath (last evening) Cardiovascular: Denies: Chest Pain Endocrine: Reports: Fatigue GI/Abdominal: Denies: Abdominal Pain, Nausea, Vomiting Musculoskeletal: Reports: Joint Pain (chronic). Denies: Shoulder Pain, Arm Pain Neurological: Reports: Dizziness (mild). Denies: Headache, Weakness ED EXAM, GENERAL - Physical Exam Exam: See Below General Appearance: Alert, No Apparent Distress Ears: Normal External Exam Nose: Normal Inspection Neck: Supple Respiratory/Chest: No Respiratory Distress, Lungs Clear, Normal Breath Sounds Cardiovascular: Tachycardia GI/Abdominal: Soft, Non-Tender Back Exam: No: CVA Tenderness (L), CVA Tenderness (R) Extremities: Normal Inspection, Pedal Edema (trace bilat). No: Leg Pain Neurological: No Motor/Sensory Deficits Course - Vital Signs Last Recorded V/S: Last Vital Signs Temp 97.4 F 07/24/20 18:16 Pulse 119 H 07/24/20 13:19 Resp 16 07/24/20 18:16 BP 137/86 07/24/20 18:16 Pulse Ox 96 07/24/20 18:16 - Orders/Labs/Meds Orders: Active Orders 24 hr Category Date Time Status Peripheral IV Insertion Adult [OM.PC] Stat Oth 07/24/20 13:42 Ordered Labs: Laboratory Tests 07/24/20 07/24/20 07/24/20 Range/Units 14:05 14:05 14:05 WBC 6.25 (4.23-9.07) K/mm3 RBC 4.97 (4.63-6.08) M/mm3 Hgb 13.9 (13.7-17.5) gm/dl Hct 43.1 (40.1-51.0) % MCV 86.7 (79.0-92.2) fl MCH 28.0 (25.7-32.2) pg MCHC 32.3 (32.2-35.5) g/dl RDW Std Deviation 50.2 H (35.1-43.9) fL Plt Count 292 (163-337) K/mm3 MPV 9.5 (9.4-12.3) fl Neutrophils % (Manual) 78 H (40-60) % Band Neutrophils % 0 (0-10) % Lymphocytes % (Manual) 8 L (20-40) % Atypical Lymphs % 0 % Monocytes % (Manual) 13 H (2-10) % Eosinophils % (Manual) 0 L (0.8-7.0) % Basophils % (Manual) 1 (0.2-1.2) Platelet Estimate Adequate RBC Morph Comment Normal Sodium 137 (136-145) mEq/L Potassium 3.6 (3.5-5.1) mEq/L Chloride 102 (98-107) mEq/L Carbon Dioxide 22 (21-32) mEq/L Anion Gap 16.6 H (5-15) BUN 28 H (7-18) mg/dL Creatinine 2.1 H (0.7-1.3) mg/dL Est Cr Clr Drug Dosing 39.69 mL/min Estimated GFR (MDRD) 32 (>60) mL/min BUN/Creatinine Ratio 13.3 L (14-18) Glucose 185 H (80-115) mg/dL Lactic Acid 1.0 (0.4-2.0) mmol/L Calcium 8.7 (8.5-10.1) mg/dL Total Bilirubin 0.8 (0.2-1.0) mg/dL AST 20 (15-37) U/L ALT 35 (16-63) U/L Alkaline Phosphatase 85 (46-116) U/L C-Reactive Protein 7.1 H* (<1.0) mg/dL Total Protein 7.4 (6.4-8.2) g/dl Albumin 3.5 (3.4-5.0) g/dl Globulin 3.9 gm/dL Albumin/Globulin Ratio 0.9 L (1-2) Meds: Medications Discontinued Medications Generic Name Dose Route Start Last Admin Trade Name Freq PRN Reason Stop Dose Admin Amoxicillin 500 mg 07/24/20 16:57 07/24/20 17:05 Amoxil PO 07/24/20 16:58 500 mg ONETIME ONE Administration Ceftriaxone Sodium 2 gm/ 100 mls @ 200 mls/hr 07/24/20 14:43 07/24/20 14:58 Sodium Chloride IV 07/24/20 15:12 200 mls/hr ONETIME ONE Administration Sodium Chloride 10 ml 07/24/20 13:41 07/24/20 14:15 Saline Flush FLUSH 10 ml ASDIRECTED PRN Administration Keep Vein Open - Re-Assessments/Exams Free Text/Narrative Re-Assessment/Exam: 07/24/20 17:14. As noted lab called late morning that his blood culture from last evening was growing out gram positive cocci in chains. His WBC today is improved from 9,000 last evening to just over 6,000 this afternoon. CRP has gone up from 2 to 7. He has been afebrile in the ED, feels well. We have give rocephin 2 grams IV. I had made arrangements for him to be admitted to the care of our Hospitalist but patient states "I am tired of being here, I hate hospitals, I feel good, I am going home." I have had him sign out against medical advice. Have written out patient order for rocephing 2 grams IV for 2 more days. A script to start amoxicillin 1000 bid to get some more gram pos coverage for probable some kind of strep, final ID unknown. Discharge instr. as documented. Departure - Departure Time of Disposition: 16:58 Disposition: Home, Self-Care 01 Condition: Fair Clinical Impression: Sepsis Qualifiers: Sepsis type: sepsis due to unspecified organism Sepsis acute organ dysfunction status: with acute organ dysfunction Severe sepsis acute organ dysfunction type: unspecified - Discharge Information Prescriptions: Amoxicillin 1,000 mg PO BID #30 capsule Instructions: Antibiotic Medicine, Adult, [id number], Sepsis, Diagnosis, Adult Referrals: Mario Hughes MD [Primary Care Provider] - Forms: ED Department Discharge Additional Instructions: It has been advised you be admitted to the hospital for further inpatient treatment until we have the organism that was growing in your blood identified and know it is safe for you to go home. You have elected to go home, signed out AMA. An order has been provided for you to the return to the hospital for the next 2 days for outpatient IV antibiotics. Start amoxicillin 1000 mg (2 500 mg capsules) twice daily, first dose at home this evening. Prescription has been sent to [facility]. See provider in ED Tuesday for recheck and further adjustment of your outpatient antibiotics. Return to ED at any time if you do start running high fever or becoming more ill in any other way. Sepsis Event Note (ED) - Evaluation Sepsis Screening Result: No Definite Risk - My Orders Last 24 Hours: My Active Orders 07/24/20 13:42 Peripheral IV Insertion Adult [OM.PC] Stat - Assessment/Plan Last 24 Hours: My Active Orders 07/24/20 13:42 Peripheral IV Insertion Adult [OM.PC] Stat
[2020-07-24] MEDS ORDERED: cefTRIAXone 2 GM in Sodium Chloride 0.9% 100 ML IV ONE (14:43)
[2020-07-24] MEDS ORDERED: Amoxicillin 500 MG Cap PO ONE (16:57)
[2020-07-24 18:17] VITALS: BP 137/86
--- NOTE | 2020-07-25 08:55 | CR ---
Chest: Portable view of the chest was obtained. Comparison: Prior chest x-ray of 07/23/20. Heart size and mediastinum are within normal limits for portable technique. Slight density noted within the lateral left costophrenic angle which is stable. Slight density within the left midlung is seen which is stable. Lungs otherwise are clear. Old healed left-sided rib fractures are noted. Impression: 1. Slight density within the left chest believed to be chronic. 2. Nothing acute is definitely appreciated. Diagnostic code #2
== END 2020-07-24 17:30 | disposition home or self-care (01) ==
LOC: JD.ED 13:04 → SUPCPDRO 13:04 → JD.ED 17:30
DX: A41.9 Sepsis, unspecified organism (principal); R65.20 Severe sepsis without septic shock; E78.00 Pure hypercholesterolemia, unspecified; I10 Essential (primary) hypertension; M10.9 Gout, unspecified; E11.9 Type 2 diabetes mellitus without complications; Z79.82 Long term (current) use of aspirin; Z79.4 Long term (current) use of insulin; Z79.899 Other long term (current) drug therapy
CPT/HCPCS: 36415; 71045; 80053; 83605; 85007; 85027; 86140; 96365; 99285; A9270; J0696; J7050; 99283

== ENCOUNTER 2020-07-24 20:01 | Inpatient (IN) | payer MEDICARE, OTHER ==
--- NOTE | 2020-07-24 20:55 | PCM.HP.2 ---
H&P History of Present Illness - General Date of Service: 07/24/20 Admit Problem/Dx: Bacteremia Source of Information: Patient, Provider, RN Notes Reviewed History Limitations: Reports: No Limitations - History of Present Illness Initial Comments - Free Text/Narative: This is a 65 yo white female with past medical hx/o Impaired Hearing and Vision, HTN, HLD, Hx/o Pneumothorax, Gout, 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 He was initially seen in ED yesterday evening due to complaints of subjective fever, chills, diaphoresis, and dyspnea on exertion. Blood culture was drawn and today his culture came back positive for GPC organism with unknown source. He was called in and told to come back to the hospital. Dr Gallagher consulted with me about his case and I recommended for him to come in for inpatient antibiotic treatment. However he left AMA in ED. No he comes back to feeling no better. His initial work up in ED shows a CBC remarkable for Neutrophils of 78%. His coagulation studies are positive for slightly elevated D-dimer. His chemistry is significant for AG of 16.6, BUN of 28, Cr of 2.1, BS of 185, CRP of 7.1, ProBNP of 150, and ESR of 47. His chest x-ray shows no acute abnormal findings. His UA is negative for UTI. Patient is coming for further management of Bacteremia 2/2 GPC with unknown source. Left Jaw Pain Score (Numeric/FACES): 3 - Related Data Allergies/Adverse Reactions: Allergies Allergy/AdvReac Type Severity Reaction Status Date / Time No Known Allergies Allergy Verified 07/23/20 22:46 Home Medications: Home Meds Aspirin [Halfprin] 81 mg PO DAILY 05/15/17 [History] Insulin Glarg,Human.Rec.Analog [LantUS Solostar] 25 unit INJECT DAILY 05/15/17 [History] Levothyroxine [Synthroid] 112 mcg PO DAILY 05/15/17 [History] Lisinopril 5 mg PO DAILY 05/15/17 [History] Pravastatin [Pravachol] 40 mg PO DAILY 05/15/17 [History] Allopurinol [Zyloprim] 100 mg PO DAILY 08/15/17 [History] Amoxicillin 1,000 mg PO BID #30 capsule 07/24/20 [Rx] Doxycycline [Vibra-Tabs] 100 mg PO Q12HR #20 tab 07/24/20 [Rx] Past Medical History HEENT History: Reports: Hard of Hearing, Impaired Vision Cardiovascular History: Reports: High Cholesterol, Hypertension Respiratory History: Reports: Other (See Below) Other Respiratory History: 2 pneumonthorax Gastrointestinal History: Reports: None Genitourinary History: Reports: None Musculoskeletal History: Reports: Gout Neurological History: Reports: Other (See Below) Other 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 Immunologic History: Reports: None Oncologic (Cancer) History: Reports: None Dermatologic History: Reports: None - Infectious Disease History Infectious Disease History: Reports: Chicken Pox, Mumps - Past Surgical History Head Surgeries/Procedures: Reports: None HEENT Surgical History: Reports: Tonsillectomy GI Surgical History: Reports: None Male Surgical History: Reports: None Musculoskeletal Surgical History: Reports: Other (See Below) Other Musculoskeletal Surgeries/Procedures:: right femur fracture-fractured ribs. Patient fell from a second story of his home in 2006 and suffered I believe fractures to 10 out of 12 ribs on one side and multiple fractures in the other side with flail chest. He broke his right femur and hip. He had a traumatic brain injury at that time as well. He spent I believe over 3 months in hospital and then several months in rehab before he was able to come home. Social & Family History - Family History Family Medical History: No Pertinent Family History - Caffeine Use Caffeine Use: Reports: Coffee - Living Situation & Occupation Living situation: Reports: Occupation: Retired H&P Review of Systems - Review of Systems: Review Of Systems: See Below General: Reports: Fever, Chills, Fatigue. Denies: Decreased Appetite HEENT: Denies: Contact Lenses, Dysphasia, Eye Pain, Headaches, Rhinitis, Sinus Congestion, Sore Throat Pulmonary: Denies: Shortness of Breath Cardiovascular: Reports: Dyspnea on Exertion, Other (dizzy). Denies: Chest Pain, Palpitations, Edema, Lightheadedness Gastrointestinal: Denies: Abdominal Pain, Constipation, Diarrhea, Nausea, Vomiting Genitourinary: Denies: Frequency, Urgency, Incontinence Musculoskeletal: Denies: Neck Pain, Back Pain, Joint Pain Skin: Denies: Bruising, Rash, Erythema, Wound, Change in Color, Lesions Psychiatric: Denies: Depression, Anxiety Neurological: Reports: Dizziness. Denies: Weakness Hematologic/Lymphatic: Denies: Anemia, Easy Bleeding Immunologic: Denies: Anaphylaxis, Food Allergy Exam - Exam Exam: See Below - Exam General: Alert, Oriented, Cooperative HEENT: Conjunctiva Clear, EACs Clear, EOMI, Hearing Intact, Mucosa Moist & [place], Nares Patent, Normal Nasal Septum, Posterior Pharynx Clear, Pupils Equal, Pupils Reactive, TMs Clear, Other (Poor dentition) Neck: Supple, Trachea Midline Lungs: Clear to Auscultation, Normal Respiratory Effort Cardiovascular: Tachycardia GI/Abdominal Exam: Normal Bowel Sounds, Soft, Non-Tender, No Organomegaly, No Distention, No Abnormal Bruit, No Mass, Other (Obese) (Male) Exam: Deferred Rectal (Males) Exam: Deferred Back Exam: Normal Inspection, Full Range of Motion Extremities: Normal Inspection, Normal Range of Motion, Non-Tender, No Pedal Edema, Normal Capillary Refill, Other Peripheral Pulses: 1+: Dorsalis Pedis (L), Dorsalis Pedis (R) Skin: Warm, Dry, Intact. No: Rash, Pet[place]ia, Ecchymosis, Wound, Decubitis Neurological: Cranial Nerves Intact, Normal Gait Neuro Extensive - Mental Status: Alert, Oriented x3, Normal Mood/Affect, Normal Cognition, Memory Intact Psychiatric: Alert, Normal Affect, Normal Mood - Patient Data Result Diagrams: 07/26/20 06:21 07/26/20 06:21 Problem List Initiated/Reviewed/Updated: Yes Assessment/Plan Comment:: This is a 65 yo white female with past medical hx/o Impaired Hearing and Vision, HTN, HLD, Hx/o Pneumothorax, CKD Stage 3, Gout, 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 Assessment: Acute: Sepsis Bacteremia 2/2 GPC, unknown source but has poor dentition (unlikely source) as he has no oral complaints. We will wait Cx/Sx of specimen. Fever with a temp as high 39.1C Hyperglycemia with DM2 with last A1C level of 6.9 on 07/23/2020 Elevated CRP of 7.1 and ERS of 47 Hypertension Sinus Tachycardia R/o COVID-19 and Viral Illness Class II Obese Chronic: HTN HLD CKD Stage 3 Gout DM2 Obesity Plan: Admit to [facility]. Sepsis protocol however he does not need the required volume resuscitation since he is already hypertensive. IV BS abx with Zosyn and Vancomycin for pharmacy to dose. IV fluid for hydration. Routine AM labs. Monitor LA and Procal levels. Accu-check AC with ISS and home dose LA insulin. Viral Panel. ADA diet. Dietary consult for weight management. PT/OT to assess and treat. Complete physical exam to check for skin lesions, wounds, abscess and all crevices as possible source of infection since he is diabetic. DVT prophylaxis: Heparin SubQ TID. GI prophylaxis:PPI. Code status is full. LOS > 96 hrs due to complexity of presenting illness. Prognosis is guarded.
[2020-07-24] MEDS ORDERED: Albuterol/Ipratropium 3.0-0.5 MG/3 ML Neb Soln NEB PRN (20:56)
[2020-07-24] MEDS ORDERED: Acetaminophen/HYDROcodone 325-5 MG Tab PO PRN (20:56)
[2020-07-24] MEDS ORDERED: HYDROmorphone 0.5 MG/0.5 ML Syringe IVPUSH PRN (20:56)
[2020-07-24] MEDS ORDERED: Bisacodyl 5 MG Tab PO PRN (20:56)
[2020-07-24] MEDS ORDERED: Polyethylene Glycol 3350 Powder 17 GM Packet PO PRN (20:56)
[2020-07-24] MEDS ORDERED: Ondansetron 4 MG/2 ML SDV IV PRN (20:56)
[2020-07-24] MEDS ORDERED: Promethazine 6.25 MG in Sodium Chloride 0.9% 50 ML IV PRN (20:56)
[2020-07-24] MEDS ORDERED: Zolpidem 5 MG Tab PO PRN (20:56)
[2020-07-24] MEDS ORDERED: guaiFENesin/Dextromethorphan 100-10 MG/5 ML Soln 5 ML Cup PO PRN (21:03)
[2020-07-24] MEDS ORDERED: hydrALAZINE 20 MG/ML SDV IVPUSH PRN (21:04)
[2020-07-24] MEDS ORDERED: Metoprolol Tartrate 5 MG/5 ML SDV IVPUSH PRN (21:10)
[2020-07-24] MEDS: Acetaminophen 325 MG Tab PO PRN (21:39)
[2020-07-24] MEDS: Lactated Ringers 1,000 ML IV SCH (21:42)
[2020-07-24] MEDS: Heparin Sodium 5,000 Units/ML Vial SUBCUT SCH (21:43)
[2020-07-24] MEDS ORDERED: Vancomycin 2 GM in Sodium Chloride 0.9% 500 ML IV SCH (22:00)
[2020-07-24 22:18] LABS: CORONAVIRUS COVID-19 NAA NEGATIVE (NEGATIVE)
[2020-07-25] MEDS ORDERED: Piperacillin/Tazobactam 4.5 GM in Sodium Chloride 0.9% 100 ML IV ONE ×2
[2020-07-25] MEDS ORDERED: FLU Vacc QV2020-21(65YR UP)/PF 240 MCG/0.7 ML Syringe IM ONE (02:00)
[2020-07-25] MEDS: Levothyroxine 112 MCG Tab PO SCH (06:02)
[2020-07-25] MEDS: Acetaminophen 325 MG Tab PO PRN (06:02)
[2020-07-25] MEDS: Lactated Ringers 1,000 ML IV SCH (06:02)
[2020-07-25] MEDS: Heparin Sodium 5,000 Units/ML Vial SUBCUT SCH ×3 (06:02→21:49)
[2020-07-25] MEDS: Allopurinol 100 MG Tab PO SCH (08:23)
[2020-07-25] MEDS: Aspirin 81 MG Tab.EC PO SCH (08:23)
[2020-07-25] MEDS: Insulin Glarg,Human.Rec.Analog 100 Unit/ML SUBCUT SCH (08:24)
[2020-07-25] MEDS: Piperacillin/Tazobactam 4.5 GM in Sodium Chloride 0.9% 100 ML IV SCH ×2 (08:27→16:44)
[2020-07-25] MEDS ORDERED: PRAVASTATIN 40 MG PO SCH (09:00)
[2020-07-25] MEDS ORDERED: Magnesium Sulfate/Water 2 GM/50 ML BAG IV ONE ×2 (10:00→12:00)
[2020-07-25 10:31] LABS: HEMOGLOBIN A1C 7.7 % (4.50-6.20)
--- NOTE | 2020-07-25 11:14 | PCM.PN ---
- General Info Date of Service: 07/25/20 Admission Dx/Problem (Free Text): Bacteremia Subjective Update: 07/25/20 afebrile this am / vss feels like a new person. chills / rigors and sweats resolving/// weakness still present. labs pending. blood cultres growing gram pos cocci in chains. p.e. lungs clear and equal cor rrr with murmur 2/6 [facility] skin chin swelling edema and pink hue slightly indurated and tender. wears cpap) oral multiple worn teeth and no severe gingival bleeding or purulance but slightly criptic around worn teeth / 2 empty sockets without discharge. abd benign no spleen or liver tendernes. m.s : / advanced osteoarthritis features/ no active synovitis. skin no ulcers seen on feet or sacrum . greer growth. Assess; bacteremia and sepsis with gram pos. chains in blood cultures 2/2 with apparent defervescence with zosyn and vanco . possibel sources include recent dental procedures////// skin abscess on chin ///// micro skin tears around edematous// arthritic feet 2 diabetes poor control aic 7.7 and check post prandial b.s.. 3// severe osteoarthritis . 4// lisa on cpap. 5///obesity. 6 dental decay . PLAN cont i.v antibiotics repeat dental eval and possible ct scan of mandible if does not resolve increase activity . dc isolation. assess chf sec to edema. assess contrl dm but suspect post prandial bs poorly controlled and consult diabetes ed. cont antibiotics i.v x at least 72 hours and repeat culture if bacteremia recurs. boh Functional Status: Reports: Pain Controlled - Review of Systems General: Reports: Fever, Weakness, Fatigue, Malaise, Chills, Night Sweats, Appetite HEENT: Reports: No Symptoms Pulmonary: Reports: No Symptoms Cardiovascular: Reports: No Symptoms, Dyspnea on Exertion Gastrointestinal: Reports: No Symptoms Genitourinary: Reports: Frequency Musculoskeletal: Reports: Neck Pain, Shoulder Pain, Back Pain, Leg Pain, Joint Swelling Skin: Reports: No Symptoms, Bruising (swelling of left mandible without hx of trauma ), Rash, Other Neurological: Reports: No Symptoms Psychiatric: Reports: No Symptoms - Patient Data Vitals - Most Recent: Last Vital Signs Temp 37.1 C 07/25/20 08:07 Pulse 95 07/25/20 08:07 Resp 16 07/25/20 08:07 BP 141/73 H 07/25/20 08:07 Pulse Ox 94 L 07/25/20 08:07 Weight - Most Recent: 150.139 kg I&O - Last 24 Hours: Intake & Output 07/24/20 07/25/20 07/25/20 22:59 06:59 14:59 Intake Total 1700 Output Total 900 Balance 800 Lab Results Last 24 Hours: Laboratory Results - last 24 hr 07/24/20 07/24/20 07/24/20 Range/Units 00:15 21:33 23:00 WBC (4.23-9.07) K/mm3 RBC (4.63-6.08) M/mm3 Hgb (13.7-17.5) gm/dl Hct (40.1-51.0) % MCV (79.0-92.2) fl MCH (25.7-32.2) pg MCHC (32.2-35.5) g/dl RDW Std Deviation (35.1-43.9) fL Plt Count (163-337) K/mm3 MPV (9.4-12.3) fl Neut % (Auto) (34.0-67.9) % Lymph % (Auto) (21.8-53.1) % [place] % (Auto) (5.3-12.2) % Eos % (Auto) (0.8-7.0) Baso % (Auto) (0.1-1.2) % Neut # (Auto) (1.78-5.38) K/mm3 Lymph # (Auto) (1.32-3.57) K/mm3 [place] # (Auto) (0.30-0.82) K/mm3 Eos # (Auto) (0.04-0.54) K/mm3 Baso # (Auto) (0.01-0.08) K/mm3 Sodium (136-145) mEq/L Potassium (3.5-5.1) mEq/L Chloride (98-107) mEq/L Carbon Dioxide (21-32) mEq/L Anion Gap (5-15) BUN (7-18) mg/dL Creatinine (0.7-1.3) mg/dL Est Cr Clr Drug Dosing mL/min Estimated GFR (MDRD) (>60) mL/min BUN/Creatinine Ratio (14-18) Glucose (80-115) mg/dL POC Glucose (80-115) mg/dL Hemoglobin A1c (4.50-6.20) % Lactic Acid 1.9 (0.4-2.0) mmol/L Calcium (8.5-10.1) mg/dL Magnesium (1.8-2.4) mg/dl C-Reactive Protein (<1.0) mg/dL Urine Opiates Screen Negative (WZINSF=555) Ur Buprenorphine Scrn Negative (CUTOFF=10) Ur Oxycodone Screen Negative (QDW0ZD=525) Urine Methadone Screen Negative (EEK6CN=293) Ur Propoxyphene Screen Negative (PEUVGV=021) Ur Barbiturates Screen Negative (SAOHBN=892) Ur Tricyclics Screen Negative (PXBMOX=985) Ur Phencyclidine Scrn Negative (CUTOFF=25) Ur Amphetamine Screen Negative (EPWVCK=018) U Methamphetamines Scrn Negative (FQADMR=301) U Benzodiazepines Scrn Negative (XYCKFW=920) U Cocaine Metab Screen Negative (DAIZNQ=566) U Marijuana (THC) Screen Negative (CUTOFF=50) Influenza Type A RNA Negative (NEGATIVE) Influenza Type B RNA Negative (NEGATIVE) SARS-CoV-2 RNA (SERGIO) Negative (NEGATIVE) 07/25/20 07/25/20 07/25/20 Range/Units 05:50 05:50 05:50 WBC 8.00 (4.23-9.07) K/mm3 RBC 4.58 L (4.63-6.08) M/mm3 Hgb 12.9 L (13.7-17.5) gm/dl Hct 39.8 L (40.1-51.0) % MCV 86.9 (79.0-92.2) fl MCH 28.2 (25.7-32.2) pg MCHC 32.4 (32.2-35.5) g/dl RDW Std Deviation 50.2 H (35.1-43.9) fL Plt Count 269 (163-337) K/mm3 MPV 9.8 (9.4-12.3) fl Neut % (Auto) 71.7 H (34.0-67.9) % Lymph % (Auto) 14.6 L (21.8-53.1) % [place] % (Auto) 13.0 H (5.3-12.2) % Eos % (Auto) 0.3 L (0.8-7.0) Baso % (Auto) 0.3 (0.1-1.2) % Neut # (Auto) 5.74 H (1.78-5.38) K/mm3 Lymph # (Auto) 1.17 L (1.32-3.57) K/mm3 [place] # (Auto) 1.04 H (0.30-0.82) K/mm3 Eos # (Auto) 0.02 L (0.04-0.54) K/mm3 Baso # (Auto) 0.02 (0.01-0.08) K/mm3 Sodium 137 (136-145) mEq/L Potassium 3.6 (3.5-5.1) mEq/L Chloride 104 (98-107) mEq/L Carbon Dioxide 21 (21-32) mEq/L Anion Gap 15.6 H (5-15) BUN 26 H (7-18) mg/dL Creatinine 1.9 H (0.7-1.3) mg/dL Est Cr Clr Drug Dosing 43.86 mL/min Estimated GFR (MDRD) 36 (>60) mL/min BUN/Creatinine Ratio 13.7 L (14-18) Glucose 169 H (80-115) mg/dL POC Glucose (80-115) mg/dL Hemoglobin A1c 7.70 H (4.50-6.20) % Lactic Acid (0.4-2.0) mmol/L Calcium 8.2 L (8.5-10.1) mg/dL Magnesium 1.7 L (1.8-2.4) mg/dl C-Reactive Protein 10.4 H* (<1.0) mg/dL Urine Opiates Screen (QHYPIJ=787) Ur Buprenorphine Scrn (CUTOFF=10) Ur Oxycodone Screen (XTU9FE=876) Urine Methadone Screen (YAS9QR=275) Ur Propoxyphene Screen (BCASVE=948) Ur Barbiturates Screen (UQHSMF=565) Ur Tricyclics Screen (VACSTJ=425) Ur Phencyclidine Scrn (CUTOFF=25) Ur Amphetamine Screen (ELSVAG=949) U Methamphetamines Scrn (RLJLAJ=752) U Benzodiazepines Scrn (VSPLAK=620) U Cocaine Metab Screen (YXXUVT=035) U Marijuana (THC) Screen (CUTOFF=50) Influenza Type A RNA (NEGATIVE) Influenza Type B RNA (NEGATIVE) SARS-CoV-2 RNA (SERGIO) (NEGATIVE) 07/25/20 Range/Units 06:30 WBC (4.23-9.07) K/mm3 RBC (4.63-6.08) M/mm3 Hgb (13.7-17.5) gm/dl Hct (40.1-51.0) % MCV (79.0-92.2) fl MCH (25.7-32.2) pg MCHC (32.2-35.5) g/dl RDW Std Deviation (35.1-43.9) fL Plt Count (163-337) K/mm3 MPV (9.4-12.3) fl Neut % (Auto) (34.0-67.9) % Lymph % (Auto) (21.8-53.1) % [place] % (Auto) (5.3-12.2) % Eos % (Auto) (0.8-7.0) Baso % (Auto) (0.1-1.2) % Neut # (Auto) (1.78-5.38) K/mm3 Lymph # (Auto) (1.32-3.57) K/mm3 [place] # (Auto) (0.30-0.82) K/mm3 Eos # (Auto) (0.04-0.54) K/mm3 Baso # (Auto) (0.01-0.08) K/mm3 Sodium (136-145) mEq/L Potassium (3.5-5.1) mEq/L Chloride (98-107) mEq/L Carbon Dioxide (21-32) mEq/L Anion Gap (5-15) BUN (7-18) mg/dL Creatinine (0.7-1.3) mg/dL Est Cr Clr Drug Dosing mL/min Estimated GFR (MDRD) (>60) mL/min BUN/Creatinine Ratio (14-18) Glucose (80-115) mg/dL POC Glucose 174 H (80-115) mg/dL Hemoglobin A1c (4.50-6.20) % Lactic Acid (0.4-2.0) mmol/L Calcium (8.5-10.1) mg/dL Magnesium (1.8-2.4) mg/dl C-Reactive Protein (<1.0) mg/dL Urine Opiates Screen (QLNPGY=934) Ur Buprenorphine Scrn (CUTOFF=10) Ur Oxycodone Screen (LOG5BQ=961) Urine Methadone Screen (IUD6SV=566) Ur Propoxyphene Screen (APDKQT=741) Ur Barbiturates Screen (EBQDBH=209) Ur Tricyclics Screen (DYDQYG=504) Ur Phencyclidine Scrn (CUTOFF=25) Ur Amphetamine Screen (NNTDLX=700) U Methamphetamines Scrn (NKWACR=174) U Benzodiazepines Scrn (JBXMVE=713) U Cocaine Metab Screen (ZJGAWO=171) U Marijuana (THC) Screen (CUTOFF=50) Influenza Type A RNA (NEGATIVE) Influenza Type B RNA (NEGATIVE) SARS-CoV-2 RNA (SERGIO) (NEGATIVE) Med Orders - Current: Current Medications Acetaminophen (Tylenol) 650 mg PO Q4H PRN PRN Reason: Pain (Mild 1-3)/fever Last Admin: 07/25/20 06:02 Dose: 650 mg Documented by: Hydrocodone Bitart/Acetaminophen ([place] 325-5 Mg) 1 tab PO Q4H PRN PRN Reason: Pain (moderate 4-6) Albuterol/Ipratropium (Duoneb 3.0-0.5 Mg/3 Ml) 3 ml NEB Q4H PRN PRN Reason: Shortness Of Breath/wheezing Allopurinol (Zyloprim) 100 mg PO DAILY [facility] Last Admin: 07/25/20 08:23 Dose: 100 mg Documented by: Aspirin (Halfprin) 81 mg PO DAILY [facility] Last Admin: 07/25/20 08:23 Dose: 81 mg Documented by: Bisacodyl (Dulcolax) 5 mg PO DAILY PRN PRN Reason: Constipation Guaifenesin/Phenylephrine HCl (Robitussin Dm) 10 ml PO Q4H PRN PRN Reason: Cough Heparin Sodium (Porcine) (Heparin Sodium) 5,000 units SUBCUT Q8H [facility] Last Admin: 07/25/20 06:02 Dose: 5,000 units Documented by: Hydralazine HCl (Apresoline) 20 mg IVPUSH Q4H PRN PRN Reason: Hypertension Hydromorphone HCl (Dilaudid) 0.5 mg IVPUSH Q2H PRN PRN Reason: Pain (severe 7-10) Promethazine HCl 6.25 mg/ (Sodium Chloride) 50.25 mls @ 100 mls/hr IV Q6H PRN PRN Reason: Nausea/Vomiting Lactated Ringer's (Ringers, Lactated) 1,000 mls @ 125 mls/hr IV ASDIRECTED [facility] Last Admin: 07/25/20 06:02 Dose: 125 mls/hr Documented by: Piperacillin Sod/Tazobactam (Sod 4.5 gm/ Sodium Chloride) 100 mls @ 25 mls/hr IV Q8H [facility] Last Admin: 07/25/20 08:27 Dose: 25 mls/hr Documented by: Vancomycin HCl 2 gm/ Sodium (Chloride) 500 mls @ 250 mls/hr IV Q18H [facility] Magnesium Sulfate (Magnesium Sulfate In Water Premix) 2 gm in 50 mls @ 25 mls/hr IV ONETIME ONE Stop: 07/25/20 13:59 Insulin Glargine (Lantus) 25 unit SUBCUT DAILY [facility] Last Admin: 07/25/20 08:24 Dose: 25 unit Documented by: Levothyroxine Sodium (Levothyroxine) 112 mcg PO ACBREAKFAST [facility] Last Admin: 07/25/20 06:02 Dose: 112 mcg Documented by: Metoprolol Tartrate (Lopressor) 5 mg IVPUSH Q4H PRN PRN Reason: Tachycardia Last Admin: 07/24/20 22:45 Dose: 5 mg Documented by: Ondansetron HCl (Zofran) 4 mg IV Q6H PRN PRN Reason: Nausea/Vomiting Polyethylene Glycol (Miralax) 17 gm PO DAILY PRN PRN Reason: Constipation Simvastatin (Zocor) 20 mg PO BEDTIME [facility] Vancomycin HCl (Pharmacy To Dose - Vancomycin) 1 dose .XX ASDIRECTED PRN PRN Reason: RX TO DOSE VANCO Zolpidem Tartrate (Ambien) 5 mg PO BEDTIME PRN PRN Reason: Sleep Discontinued Medications Vancomycin HCl 2 gm/ Sodium (Chloride) 500 mls @ 250 mls/hr IV Q12H [facility] Last Admin: 07/24/20 22:38 Dose: 250 mls/hr Documented by: Piperacillin Sod/Tazobactam (Sod 4.5 gm/ Sodium Chloride) 100 mls @ 200 mls/hr IV ONETIME ONE Stop: 07/25/20 00:29 Last Admin: 07/25/20 01:30 Dose: 200 mls/hr Documented by: Influenza Virus Vaccine (Pharmacy To Dose - Influenza Vaccine) 1 each IM ONETIME ONE Stop: 07/25/20 01:45 Influenza Virus Vaccine (Fluzone High-Dose Quad ) 240 mcg IM .ONCE ONE Stop: 07/25/20 02:01 - Exam General: Alert, Oriented HEENT: Pupils Equal, Pupils Reactive, EOMI, Mucous Membr. Moist/[place] Neck: Supple Lungs: Clear to Auscultation, Normal Respiratory Effort Cardiovascular: Regular Rate, Regular Rhythm GI/Abdominal Exam: Normal Bowel Sounds, Soft, Non-Tender, No Organomegaly, No Distention, No Abnormal Bruit, No Mass, Pelvis Stable (Male) Exam: No Hernia, Normal Inspection, Normal Prostate, Circumcised Back Exam: Normal Inspection, Full Range of Motion Extremities: Normal Inspection, Normal Range of Motion, Non-Tender, No Pedal Edema, Normal Capillary Refill Skin: Warm, Dry, Intact, Rash, Ecchymosis Wound/Incisions: Healing Well Neurological: No New Focal Deficit Psy/Mental Status: Alert, Normal Affect, Normal Mood Sepsis Event Note - Evaluation Sepsis Screening Result: No Definite Risk Current Stage of Sepsis: Sepsis Possible Source of Sepsis: Skin/Soft Tissue - Focused Exam Sepsis Event Note Statement: Focused Sepsis Exam Completed Vital Signs: Vital Signs Temp Pulse Resp BP Pulse Ox 07/25/20 08:07 37.1 C 92 16 141/73 H 94 L 07/25/20 06:02 37.6 C 07/25/20 05:57 37.6 C 89 20 140/78 93 L 07/25/20 02:13 37.1 C - Bedside Monitoring Passive Leg Raise/Fluid Bolus: Negative Date Bedside Monitoring was Performed: 07/25/20 Time Bedside Monitoring was Performed: 11:17 - Problem List & Annotations (1) Bacteremia SNOMED Code(s): 4121607 Code(s): R78.81 - BACTEREMIA Status: Acute Priority: High Current Visit: Yes Onset Date: ~07/25/20 (2) Diabetes mellitus SNOMED Code(s): 75510978 Code(s): E11.9 - TYPE 2 DIABETES MELLITUS WITHOUT COMPLICATIONS Status: Acute Current Visit: Yes Qualifiers: Diabetes mellitus type: type 2 Diabetes mellitus complication status: with oral complications - Problem List Review Problem List Initiated/Reviewed/Updated: Yes - My Orders Last 24 Hours: My Active Orders 07/25/20 12:00 Magnesium Sulfate/Water [Magnesium Sulfate in Water Premix] 2 gm in 50 ml IV ONETIME - Plan Plan:: This is a 65 yo white female with past medical hx/o Impaired Hearing and Vision, HTN, HLD, Hx/o Pneumothorax, CKD Stage 3, Gout, 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 Assessment: Acute: Sepsis Bacteremia 2/2 GPC, unknown source but has poor dentition (unlikely source) as he has no oral complaints Fever with a temp as high 39.1C Hyperglycemia with DM2 with last A1C level of 6.9 on 07/23/2020 Elevated CRP of 7.1 and ERS of 47 Hypertension Sinus Tachycardia R/o COVID-19 and Viral Illness Class II Obese Chronic: HTN HLD CKD Stage 3 Gout DM2 Obesity Plan: Admit to [facility]. Sepsis protocol however he does not need the required volume resuscitation since he is already hypertensive. IV BS abx with Zosyn and Vancomycin for pharmacy to dose. IV fluid for hydration. Routine AM labs. Monitor LA and Procal levels. Accu-check AC with ISS and home dose LA insulin. Viral Panel. ADA diet. Dietary consult for weight management. PT/OT to assess and treat. Complete physical exam to check for skin lesions, wounds, abscess and all crevices as possible source of infection since he is diabetic. DVT prophylaxis: Heparin SubQ TID. GI prophylaxis:PPI. Code status is full. LOS > 96 hrs due to complexity of presenting illness. 07/25/20 afebrile this am / vss feels like a new person. chills / rigors and sweats resolving/// weakness still present. labs pending. blood cultres growing gram pos cocci in chains. p.e. lungs clear and equal cor rrr with murmur 2/6 [facility] skin chin swelling edema and pink hue slightly indurated and tender. wears cpap) oral multiple worn teeth and no severe gingival bleeding or purulance but slightly criptic around worn teeth / 2 empty sockets without discharge. abd benign no spleen or liver tendernes. m.s : / advanced osteoarthritis features/ no active synovitis. skin no ulcers seen on feet or sacrum . greer growth. Assess; bacteremia and sepsis with gram pos. chains in blood cultures 2/2 with apparent defervescence with zosyn and vanco . possibel sources include recent dental procedures////// skin abscess on chin ///// micro skin tears around edematous// arthritic feet 2 diabetes poor control aic 7.7 and check post prandial b.s.. 3// severe osteoarthritis . 4// lisa on cpap. 5///obesity. 6 dental decay . 7)) chronic renal insuff. 80HYperuricemia PLAN cont i.v antibiotics repeat dental eval and possible ct scan of mandible if does not resolve increase activity . dc isolation. assess chf sec to edema. assess contrl dm but suspect post prandial bs poorly controlled and consult diabetes ed. cont antibiotics i.v x at least 72 hours and repeat culture if bacteremia recurs. boh
[2020-07-25] MEDS ORDERED: Vancomycin 2 GM in Sodium Chloride 0.9% 500 ML IV SCH (20:00)
[2020-07-25] MEDS: Simvastatin 20 MG Tab PO SCH (21:48)
[2020-07-26] MEDS: Piperacillin/Tazobactam 4.5 GM in Sodium Chloride 0.9% 100 ML IV SCH ×2 (00:06→08:11)
[2020-07-26] MEDS: Lactated Ringers 1,000 ML IV SCH ×2 (03:52→16:50)
[2020-07-26] MEDS: Levothyroxine 112 MCG Tab PO SCH (05:14)
[2020-07-26] MEDS: Heparin Sodium 5,000 Units/ML Vial SUBCUT SCH ×3 (05:14→20:36)
[2020-07-26] MEDS: Allopurinol 100 MG Tab PO SCH (08:10)
[2020-07-26] MEDS: Aspirin 81 MG Tab.EC PO SCH (08:10)
[2020-07-26] MEDS: Insulin Glarg,Human.Rec.Analog 100 Unit/ML SUBCUT SCH (08:11)
[2020-07-26] MEDS: Amoxicillin 500 MG Cap PO SCH ×2 (10:04→16:50)
[2020-07-26] MEDS: Losartan 25 MG Tab PO SCH (10:04)
[2020-07-26] MEDS: Furosemide 20 MG Tab PO SCH (10:04)
--- NOTE | 2020-07-26 11:21 | PCM.PN ---
<Suri Storm Tahir - Last Filed: 07/26/20 12:00> - General Info Date of Service: 07/26/20 Admission Dx/Problem (Free Text): Bacteremia Subjective Update: 07/25/20 afebrile this am / vss feels like a new person. chills / rigors and sweats resolving/// weakness still present. labs pending. blood cultres growing gram pos cocci in chains. p.e. lungs clear and equal cor rrr with murmur 2/6 [facility] skin chin swelling edema and pink hue slightly indurated and tender. wears cpap) oral multiple worn teeth and no severe gingival bleeding or purulance but slightly criptic around worn teeth / 2 empty sockets without discharge. abd benign no spleen or liver tendernes. m.s : / advanced osteoarthritis features/ no active synovitis. skin no ulcers seen on feet or sacrum . greer growth. Assess; bacteremia and sepsis with gram pos. chains in blood cultures 2/2 with apparent defervescence with zosyn and vanco . possibel sources include recent dental procedures////// skin abscess on chin ///// micro skin tears around edematous// arthritic feet 2 diabetes poor control aic 7.7 and check post prandial b.s.. 3// severe osteoarthritis . 4// lisa on cpap. 5///obesity. 6 dental decay . PLAN cont i.v antibiotics repeat dental eval and possible ct scan of mandible if does not resolve increase activity . dc isolation. assess chf sec to edema. assess contrl dm but suspect post prandial bs poorly controlled and consult diabetes ed. cont antibiotics i.v x at least 72 hours and repeat culture if bacteremia recurs. boh 07/26: Patient states he is feeling well this morning and slept good over the night. Patient states his breathing is good and has no complaints. He has noticed his chin has gotten smaller and is less painful this morning. He has been afebrile for two days. He denies fever, chills, GI upset, palpitations or chest pain. Functional Status: Reports: Pain Controlled, Tolerating Diet, Ambulating, Urinating - Review of Systems General: Reports: No Symptoms HEENT: Reports: No Symptoms Pulmonary: Reports: No Symptoms Cardiovascular: Reports: No Symptoms Gastrointestinal: Reports: No Symptoms Genitourinary: Reports: No Symptoms Musculoskeletal: Reports: Other (jaw pain) Skin: Reports: No Symptoms Neurological: Reports: No Symptoms Psychiatric: Reports: No Symptoms - Patient Data Vitals - Most Recent: Last Vital Signs Temp 99.0 F 07/26/20 07:26 Pulse 89 07/26/20 07:26 Resp 18 07/26/20 07:26 BP 145/77 H 07/26/20 10:04 Pulse Ox 95 07/26/20 07:26 Weight - Most Recent: 151.681 kg I&O - Last 24 Hours: Intake & Output 07/25/20 07/26/20 07/26/20 22:59 06:59 14:59 Intake Total 1920 1450 Output Total 150 450 Balance 1770 1000 Lab Results Last 24 Hours: Laboratory Results - last 24 hr 07/24/20 07/25/20 07/25/20 Range/Units 23:00 11:18 13:47 WBC (4.23-9.07) K/mm3 RBC (4.63-6.08) M/mm3 Hgb (13.7-17.5) gm/dl Hct (40.1-51.0) % MCV (79.0-92.2) fl MCH (25.7-32.2) pg MCHC (32.2-35.5) g/dl RDW Std Deviation (35.1-43.9) fL Plt Count (163-337) K/mm3 MPV (9.4-12.3) fl Neut % (Auto) (34.0-67.9) % Lymph % (Auto) (21.8-53.1) % [place] % (Auto) (5.3-12.2) % Eos % (Auto) (0.8-7.0) Baso % (Auto) (0.1-1.2) % Neut # (Auto) (1.78-5.38) K/mm3 Lymph # (Auto) (1.32-3.57) K/mm3 [place] # (Auto) (0.30-0.82) K/mm3 Eos # (Auto) (0.04-0.54) K/mm3 Baso # (Auto) (0.01-0.08) K/mm3 Sodium (136-145) mEq/L Potassium (3.5-5.1) mEq/L Chloride (98-107) mEq/L Carbon Dioxide (21-32) mEq/L Anion Gap (5-15) BUN (7-18) mg/dL Creatinine (0.7-1.3) mg/dL Est Cr Clr Drug Dosing mL/min Estimated GFR (MDRD) (>60) mL/min BUN/Creatinine Ratio (14-18) Glucose (80-115) mg/dL POC Glucose 131 H 187 H (80-115) mg/dL Uric Acid (3.5-7.2) mg/dL Calcium (8.5-10.1) mg/dL Magnesium (1.8-2.4) mg/dl C-Reactive Protein (<1.0) mg/dL Procalcitonin 0.96 H ng/mL 07/25/20 07/26/20 07/26/20 Range/Units 17:10 06:21 06:21 WBC 7.10 (4.23-9.07) K/mm3 RBC 4.42 L (4.63-6.08) M/mm3 Hgb 12.3 L (13.7-17.5) gm/dl Hct 38.3 L (40.1-51.0) % MCV 86.7 (79.0-92.2) fl MCH 27.8 (25.7-32.2) pg MCHC 32.1 L (32.2-35.5) g/dl RDW Std Deviation 49.4 H (35.1-43.9) fL Plt Count 253 (163-337) K/mm3 MPV 9.5 (9.4-12.3) fl Neut % (Auto) 59.8 (34.0-67.9) % Lymph % (Auto) 24.2 (21.8-53.1) % [place] % (Auto) 13.7 H (5.3-12.2) % Eos % (Auto) 1.8 (0.8-7.0) Baso % (Auto) 0.4 (0.1-1.2) % Neut # (Auto) 4.24 (1.78-5.38) K/mm3 Lymph # (Auto) 1.72 (1.32-3.57) K/mm3 [place] # (Auto) 0.97 H (0.30-0.82) K/mm3 Eos # (Auto) 0.13 (0.04-0.54) K/mm3 Baso # (Auto) 0.03 (0.01-0.08) K/mm3 Sodium 138 (136-145) mEq/L Potassium 3.8 (3.5-5.1) mEq/L Chloride 105 (98-107) mEq/L Carbon Dioxide 20 L (21-32) mEq/L Anion Gap 16.8 H (5-15) BUN 24 H (7-18) mg/dL Creatinine 1.8 H (0.7-1.3) mg/dL Est Cr Clr Drug Dosing 46.30 mL/min Estimated GFR (MDRD) 38 (>60) mL/min BUN/Creatinine Ratio 13.3 L (14-18) Glucose 140 H (80-115) mg/dL POC Glucose 149 H (80-115) mg/dL Uric Acid (3.5-7.2) mg/dL Calcium 8.2 L (8.5-10.1) mg/dL Magnesium 2.1 (1.8-2.4) mg/dl C-Reactive Protein 11.5 H* (<1.0) mg/dL Procalcitonin ng/mL 07/26/20 07/26/20 Range/Units 06:22 09:21 WBC (4.23-9.07) K/mm3 RBC (4.63-6.08) M/mm3 Hgb (13.7-17.5) gm/dl Hct (40.1-51.0) % MCV (79.0-92.2) fl MCH (25.7-32.2) pg MCHC (32.2-35.5) g/dl RDW Std Deviation (35.1-43.9) fL Plt Count (163-337) K/mm3 MPV (9.4-12.3) fl Neut % (Auto) (34.0-67.9) % Lymph % (Auto) (21.8-53.1) % [place] % (Auto) (5.3-12.2) % Eos % (Auto) (0.8-7.0) Baso % (Auto) (0.1-1.2) % Neut # (Auto) (1.78-5.38) K/mm3 Lymph # (Auto) (1.32-3.57) K/mm3 [place] # (Auto) (0.30-0.82) K/mm3 Eos # (Auto) (0.04-0.54) K/mm3 Baso # (Auto) (0.01-0.08) K/mm3 Sodium (136-145) mEq/L Potassium (3.5-5.1) mEq/L Chloride (98-107) mEq/L Carbon Dioxide (21-32) mEq/L Anion Gap (5-15) BUN (7-18) mg/dL Creatinine (0.7-1.3) mg/dL Est Cr Clr Drug Dosing mL/min Estimated GFR (MDRD) (>60) mL/min BUN/Creatinine Ratio (14-18) Glucose (80-115) mg/dL POC Glucose 135 H (80-115) mg/dL Uric Acid 5.9 (3.5-7.2) mg/dL Calcium (8.5-10.1) mg/dL Magnesium (1.8-2.4) mg/dl C-Reactive Protein (<1.0) mg/dL Procalcitonin ng/mL [facility] Results Last 24 Hours: Microbiology 07/25/20 09:00 Gram Stain - Final Sputum - Expectorated Med Orders - Current: Current Medications Acetaminophen (Tylenol) 650 mg PO Q4H PRN PRN Reason: Pain (Mild 1-3)/fever Last Admin: 07/25/20 06:02 Dose: 650 mg Documented by: Hydrocodone Bitart/Acetaminophen ([place] 325-5 Mg) 1 tab PO Q4H PRN PRN Reason: Pain (moderate 4-6) Albuterol/Ipratropium (Duoneb 3.0-0.5 Mg/3 Ml) 3 ml NEB Q4H PRN PRN Reason: Shortness Of Breath/wheezing Allopurinol (Zyloprim) 100 mg PO DAILY [facility] Last Admin: 07/26/20 08:10 Dose: 100 mg Documented by: Amoxicillin (Amoxil) 500 mg PO Q8H [facility] Last Admin: 07/26/20 10:04 Dose: 500 mg Documented by: Aspirin (Halfprin) 81 mg PO DAILY [facility] Last Admin: 07/26/20 08:10 Dose: 81 mg Documented by: Bisacodyl (Dulcolax) 5 mg PO DAILY PRN PRN Reason: Constipation Furosemide (Lasix) 20 mg PO Q48H [facility] Last Admin: 07/26/20 10:04 Dose: 20 mg Documented by: Guaifenesin/Phenylephrine HCl (Robitussin Dm) 10 ml PO Q4H PRN PRN Reason: Cough Heparin Sodium (Porcine) (Heparin Sodium) 5,000 units SUBCUT Q8H [facility] Last Admin: 07/26/20 05:14 Dose: 5,000 units Documented by: Hydromorphone HCl (Dilaudid) 0.5 mg IVPUSH Q2H PRN PRN Reason: Pain (severe 7-10) Promethazine HCl 6.25 mg/ (Sodium Chloride) 50.25 mls @ 100 mls/hr IV Q6H PRN PRN Reason: Nausea/Vomiting Lactated Ringer's (Ringers, Lactated) 1,000 mls @ 125 mls/hr IV ASDIRECTED [facility] Last Admin: 07/26/20 03:52 Dose: 125 mls/hr Documented by: Insulin Glargine (Lantus) 35 unit SUBCUT DAILY [facility] Levothyroxine Sodium (Levothyroxine) 112 mcg PO ACBREAKFAST [facility] Last Admin: 07/26/20 05:14 Dose: 112 mcg Documented by: Losartan Potassium (Cozaar) 50 mg PO DAILY [facility] Last Admin: 07/26/20 10:04 Dose: 50 mg Documented by: Metoprolol Tartrate (Lopressor) 5 mg IVPUSH Q4H PRN PRN Reason: Tachycardia Last Admin: 07/24/20 22:45 Dose: 5 mg Documented by: Ondansetron HCl (Zofran) 4 mg IV Q6H PRN PRN Reason: Nausea/Vomiting Polyethylene Glycol (Miralax) 17 gm PO DAILY PRN PRN Reason: Constipation Simvastatin (Zocor) 20 mg PO BEDTIME [facility] Last Admin: 07/25/20 21:48 Dose: 20 mg Documented by: Vancomycin HCl (Pharmacy To Dose - Vancomycin) 1 dose .XX ASDIRECTED PRN PRN Reason: RX TO DOSE VANCO Zolpidem Tartrate (Ambien) 5 mg PO BEDTIME PRN PRN Reason: Sleep Discontinued Medications Hydralazine HCl (Apresoline) 20 mg IVPUSH Q4H PRN PRN Reason: Hypertension Vancomycin HCl 2 gm/ Sodium (Chloride) 500 mls @ 250 mls/hr IV Q12H [facility] Last Admin: 07/24/20 22:38 Dose: 250 mls/hr Documented by: Piperacillin Sod/Tazobactam (Sod 4.5 gm/ Sodium Chloride) 100 mls @ 25 mls/hr IV Q8H [facility] Last Admin: 07/26/20 08:11 Dose: 25 mls/hr Documented by: Piperacillin Sod/Tazobactam (Sod 4.5 gm/ Sodium Chloride) 100 mls @ 200 mls/hr IV ONETIME ONE Stop: 07/25/20 00:29 Last Admin: 07/25/20 01:30 Dose: 200 mls/hr Documented by: Vancomycin HCl 2 gm/ Sodium (Chloride) 500 mls @ 250 mls/hr IV Q18H [facility] Last Admin: 07/25/20 21:49 Dose: 250 mls/hr Documented by: Magnesium Sulfate (Magnesium Sulfate In Water Premix) 2 gm in 50 mls @ 25 mls/hr IV ONETIME ONE Stop: 07/25/20 13:59 Last Admin: 07/25/20 12:45 Dose: 25 mls/hr Documented by: Influenza Virus Vaccine (Pharmacy To Dose - Influenza Vaccine) 1 each IM ONETIME ONE Stop: 07/25/20 01:45 Influenza Virus Vaccine (Fluzone High-Dose Quad ) 240 mcg IM .ONCE ONE Stop: 07/25/20 02:01 Insulin Glargine (Lantus) 25 unit SUBCUT DAILY [facility] Last Admin: 07/26/20 08:11 Dose: 25 unit Documented by: - Exam General: Alert, Oriented Neck: Supple Lungs: Clear to Auscultation, Normal Respiratory Effort Cardiovascular: Regular Rate, Regular Rhythm GI/Abdominal Exam: Normal Bowel Sounds, Soft, Non-Tender Back Exam: Normal Inspection, Full Range of Motion Extremities: Pedal Edema (2+) Skin: Warm, Dry, Intact Neurological: No New Focal Deficit Psy/Mental Status: Alert, Normal Affect, Normal Mood Sepsis Event Note - Evaluation Sepsis Screening Result: No Definite Risk - Focused Exam Vital Signs: Vital Signs Temp Pulse Resp BP Pulse Ox 07/26/20 10:04 145/77 H 07/26/20 07:26 99.0 F 89 18 145/77 H 95 07/26/20 03:01 99.1 F 81 14 146/72 H 94 L 07/26/20 00:20 98.8 F 99 16 160/92 H 97 - Problem List & Annotations (1) Bacteremia SNOMED Code(s): 1011515 Code(s): R78.81 - BACTEREMIA Status: Acute Priority: High Current Visit: Yes Onset Date: ~07/25/20 Annotation/Comment:: Blood culture came back as Strep Saslivarius and Strep Mitis. Stopped Zosyn and Vanco and started Amoxicillin 500 mg. Will discuss with lab to assess sensitivity and switch if needed. (2) Diabetes mellitus SNOMED Code(s): 66525082 Code(s): E11.9 - TYPE 2 DIABETES MELLITUS WITHOUT COMPLICATIONS Status: Acute Current Visit: Yes Qualifiers: Diabetes mellitus type: type 2 Diabetes mellitus complication status: with oral complications Annotation/Comment:: A1C was 7.7 when checked. Discussed getting placed on sliding scale insulin once discharged from hospital if he cannot keep blood sugars below 150-180s. - Problem List Review Problem List Initiated/Reviewed/Updated: Yes - Assessment Assessment:: 07/25: Assess; bacteremia and sepsis with gram pos. chains in blood cultures 2/2 with apparent defervescence with zosyn and vanco . possibel sources include recent dental procedures////// skin abscess on chin ///// micro skin tears around edematous// arthritic feet 2 diabetes poor control aic 7.7 and check post prandial b.s.. 3// severe osteoarthritis . 4// lisa on cpap. 5///obesity. 6 dental decay . 07/26: Bacteremia: -blood cultures came back and grew Strep Salivarius and Strep Mitis. -discontinued Zosyn and Vanco -Started Amoxicillin 500 mg PO [id number] x10 days -afebrile -CRP slightly increased at 11.5 up from 10.4 Diabetes Mellitus Type II: - AM sugar on 07/25: 174 - Pre lunch sugar: 131 -Post lunch sugar: 187 -Evening sugar: 149 -AM sugar on 12: 134 -Discussed using sliding scale insulin if he cannot keep his BS under 150-180s. -Increased Lantus to 35 units. Suspected Heart Failure: -Waiting on echo results to be read and will discuss them at a later date. 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 Assessment: Acute: Sepsis Bacteremia 2/2 GPC, unknown source but has poor dentition (unlikely source) as he has no oral complaints Fever with a temp as high 39.1C Hyperglycemia with DM2 with last A1C level of 6.9 on 07/23/2020 Elevated CRP of 7.1 and ERS of 47 Hypertension Sinus Tachycardia R/o COVID-19 and Viral Illness Class II Obese Chronic: HTN HLD CKD Stage 3 Gout DM2 Obesity Plan: Admit to [facility]. Sepsis protocol however he does not need the required volume resuscitation since he is already hypertensive. IV BS abx with Zosyn and Vancomycin for pharmacy to dose. IV fluid for hydration. Routine AM labs. Monitor LA and Procal levels. Accu-check AC with ISS and home dose LA insulin. Viral Panel. ADA diet. Dietary consult for weight management. PT/OT to assess and treat. Complete physical exam to check for skin lesions, wounds, abscess and all crevices as possible source of infection since he is diabetic. DVT prophylaxis: Heparin SubQ TID. GI prophylaxis:PPI. Code status is full. LOS > 96 hrs due to complexity of presenting illness. 07/25/20 afebrile this am / vss feels like a new person. chills / rigors and sweats resolving/// weakness still present. labs pending. blood cultres growing gram pos cocci in chains. p.e. lungs clear and equal cor rrr with murmur 2/6 [facility] skin chin swelling edema and pink hue slightly indurated and tender. wears cpap) oral multiple worn teeth and no severe gingival bleeding or purulance but slightly criptic around worn teeth / 2 empty sockets without discharge. abd benign no spleen or liver tendernes. m.s : / advanced osteoarthritis features/ no active synovitis. skin no ulcers seen on feet or sacrum . greer growth. Assess; bacteremia and sepsis with gram pos. chains in blood cultures 2/2 with apparent defervescence with zosyn and vanco . possibel sources include recent dental procedures////// skin abscess on chin ///// micro skin tears around edematous// arthritic feet 2 diabetes poor control aic 7.7 and check post prandial b.s.. 3// severe osteoarthritis . 4// lisa on cpap. 5///obesity. 6 dental decay . 7)) chronic renal insuff. 80HYperuricemia PLAN cont i.v antibiotics repeat dental eval and possible ct scan of mandible if does not resolve increase activity . dc isolation. assess chf sec to edema. assess contrl dm but suspect post prandial bs poorly controlled and consult diabetes ed. cont antibiotics i.v x at least 72 hours and repeat culture if bacteremia recurs. boh 07/26: -Discontinue Zosyn and Vanco -Start Amoxicillin 500 mg [id number] x10 days -Reassess antibiotic choice one sensitivity comes back -Increase Lantus to 35 units daily -Continue to monitor pre and post prandial sugars -Start 20 mg PO lasix [id number] for lower extremity edema. -Waiting on results of echo done on 07/25. Discussed there might be a possibility of heart failure secondary to edema. -Increase activity as tolerated -Anticipated discharge home tomorrow. LIANE Mckeon-S <Mario Hughes - Last Filed: 07/26/20 12:35> - Patient Data Vitals - Most Recent: Last Vital Signs Temp 37.2 C 07/26/20 07:26 Pulse 89 07/26/20 07:26 Resp 18 07/26/20 07:26 BP 145/77 H 07/26/20 10:04 Pulse Ox 95 07/26/20 07:26 I&O - Last 24 Hours: Intake & Output 07/25/20 07/26/20 07/26/20 22:59 06:59 14:59 Intake Total 1920 1450 300 Output Total 150 450 Balance 1770 1000 300 Lab Results Last 24 Hours: Laboratory Results - last 24 hr 07/24/20 07/25/20 07/25/20 Range/Units 23:00 13:47 17:10 WBC (4.23-9.07) K/mm3 RBC (4.63-6.08) M/mm3 Hgb (13.7-17.5) gm/dl Hct (40.1-51.0) % MCV (79.0-92.2) fl MCH (25.7-32.2) pg MCHC (32.2-35.5) g/dl RDW Std Deviation (35.1-43.9) fL Plt Count (163-337) K/mm3 MPV (9.4-12.3) fl Neut % (Auto) (34.0-67.9) % Lymph % (Auto) (21.8-53.1) % [place] % (Auto) (5.3-12.2) % Eos % (Auto) (0.8-7.0) Baso % (Auto) (0.1-1.2) % Neut # (Auto) (1.78-5.38) K/mm3 Lymph # (Auto) (1.32-3.57) K/mm3 [place] # (Auto) (0.30-0.82) K/mm3 Eos # (Auto) (0.04-0.54) K/mm3 Baso # (Auto) (0.01-0.08) K/mm3 Sodium (136-145) mEq/L Potassium (3.5-5.1) mEq/L Chloride (98-107) mEq/L Carbon Dioxide (21-32) mEq/L Anion Gap (5-15) BUN (7-18) mg/dL Creatinine (0.7-1.3) mg/dL Est Cr Clr Drug Dosing mL/min Estimated GFR (MDRD) (>60) mL/min BUN/Creatinine Ratio (14-18) Glucose (80-115) mg/dL POC Glucose 187 H 149 H (80-115) mg/dL Uric Acid (3.5-7.2) mg/dL Calcium (8.5-10.1) mg/dL Magnesium (1.8-2.4) mg/dl C-Reactive Protein (<1.0) mg/dL Procalcitonin 0.96 H ng/mL 07/26/20 07/26/20 07/26/20 Range/Units 06:21 06:21 06:22 WBC 7.10 (4.23-9.07) K/mm3 RBC 4.42 L (4.63-6.08) M/mm3 Hgb 12.3 L (13.7-17.5) gm/dl Hct 38.3 L (40.1-51.0) % MCV 86.7 (79.0-92.2) fl MCH 27.8 (25.7-32.2) pg MCHC 32.1 L (32.2-35.5) g/dl RDW Std Deviation 49.4 H (35.1-43.9) fL Plt Count 253 (163-337) K/mm3 MPV 9.5 (9.4-12.3) fl Neut % (Auto) 59.8 (34.0-67.9) % Lymph % (Auto) 24.2 (21.8-53.1) % [place] % (Auto) 13.7 H (5.3-12.2) % Eos % (Auto) 1.8 (0.8-7.0) Baso % (Auto) 0.4 (0.1-1.2) % Neut # (Auto) 4.24 (1.78-5.38) K/mm3 Lymph # (Auto) 1.72 (1.32-3.57) K/mm3 [place] # (Auto) 0.97 H (0.30-0.82) K/mm3 Eos # (Auto) 0.13 (0.04-0.54) K/mm3 Baso # (Auto) 0.03 (0.01-0.08) K/mm3 Sodium 138 (136-145) mEq/L Potassium 3.8 (3.5-5.1) mEq/L Chloride 105 (98-107) mEq/L Carbon Dioxide 20 L (21-32) mEq/L Anion Gap 16.8 H (5-15) BUN 24 H (7-18) mg/dL Creatinine 1.8 H (0.7-1.3) mg/dL Est Cr Clr Drug Dosing 46.30 mL/min Estimated GFR (MDRD) 38 (>60) mL/min BUN/Creatinine Ratio 13.3 L (14-18) Glucose 140 H (80-115) mg/dL POC Glucose 135 H (80-115) mg/dL Uric Acid (3.5-7.2) mg/dL Calcium 8.2 L (8.5-10.1) mg/dL Magnesium 2.1 (1.8-2.4) mg/dl C-Reactive Protein 11.5 H* (<1.0) mg/dL Procalcitonin ng/mL 07/26/20 Range/Units 09:21 WBC (4.23-9.07) K/mm3 RBC (4.63-6.08) M/mm3 Hgb (13.7-17.5) gm/dl Hct (40.1-51.0) % MCV (79.0-92.2) fl MCH (25.7-32.2) pg MCHC (32.2-35.5) g/dl RDW Std Deviation (35.1-43.9) fL Plt Count (163-337) K/mm3 MPV (9.4-12.3) fl Neut % (Auto) (34.0-67.9) % Lymph % (Auto) (21.8-53.1) % [place] % (Auto) (5.3-12.2) % Eos % (Auto) (0.8-7.0) Baso % (Auto) (0.1-1.2) % Neut # (Auto) (1.78-5.38) K/mm3 Lymph # (Auto) (1.32-3.57) K/mm3 [place] # (Auto) (0.30-0.82) K/mm3 Eos # (Auto) (0.04-0.54) K/mm3 Baso # (Auto) (0.01-0.08) K/mm3 Sodium (136-145) mEq/L Potassium (3.5-5.1) mEq/L Chloride (98-107) mEq/L Carbon Dioxide (21-32) mEq/L Anion Gap (5-15) BUN (7-18) mg/dL Creatinine (0.7-1.3) mg/dL Est Cr Clr Drug Dosing mL/min Estimated GFR (MDRD) (>60) mL/min BUN/Creatinine Ratio (14-18) Glucose (80-115) mg/dL POC Glucose (80-115) mg/dL Uric Acid 5.9 (3.5-7.2) mg/dL Calcium (8.5-10.1) mg/dL Magnesium (1.8-2.4) mg/dl C-Reactive Protein (<1.0) mg/dL Procalcitonin ng/mL [facility] Results Last 24 Hours: Microbiology 07/25/20 09:00 Gram Stain - Final Sputum - Expectorated Sputum Culture - Preliminary Med Orders - Current: Current Medications Acetaminophen (Tylenol) 650 mg PO Q4H PRN PRN Reason: Pain (Mild 1-3)/fever Last Admin: 07/25/20 06:02 Dose: 650 mg Documented by: Hydrocodone Bitart/Acetaminophen ([place] 325-5 Mg) 1 tab PO Q4H PRN PRN Reason: Pain (moderate 4-6) Albuterol/Ipratropium (Duoneb 3.0-0.5 Mg/3 Ml) 3 ml NEB Q4H PRN PRN Reason: Shortness Of Breath/wheezing Allopurinol (Zyloprim) 100 mg PO DAILY [facility] Last Admin: 07/26/20 08:10 Dose: 100 mg Documented by: Amoxicillin (Amoxil) 500 mg PO Q8H [facility] Last Admin: 07/26/20 10:04 Dose: 500 mg Documented by: Aspirin (Halfprin) 81 mg PO DAILY [facility] Last Admin: 07/26/20 08:10 Dose: 81 mg Documented by: Bisacodyl (Dulcolax) 5 mg PO DAILY PRN PRN Reason: Constipation Furosemide (Lasix) 20 mg PO Q48H [facility] Last Admin: 07/26/20 10:04 Dose: 20 mg Documented by: Guaifenesin/Phenylephrine HCl (Robitussin Dm) 10 ml PO Q4H PRN PRN Reason: Cough Heparin Sodium (Porcine) (Heparin Sodium) 5,000 units SUBCUT Q8H [facility] Last Admin: 07/26/20 12:21 Dose: 5,000 units Documented by: Hydromorphone HCl (Dilaudid) 0.5 mg IVPUSH Q2H PRN PRN Reason: Pain (severe 7-10) Promethazine HCl 6.25 mg/ (Sodium Chloride) 50.25 mls @ 100 mls/hr IV Q6H PRN PRN Reason: Nausea/Vomiting Lactated Ringer's (Ringers, Lactated) 1,000 mls @ 125 mls/hr IV ASDIRECTED [facility] Last Admin: 07/26/20 03:52 Dose: 125 mls/hr Documented by: Insulin Glargine (Lantus) 35 unit SUBCUT DAILY [facility] Levothyroxine Sodium (Levothyroxine) 112 mcg PO ACBREAKFAST [facility] Last Admin: 07/26/20 05:14 Dose: 112 mcg Documented by: Losartan Potassium (Cozaar) 50 mg PO DAILY [facility] Last Admin: 07/26/20 10:04 Dose: 50 mg Documented by: Metoprolol Tartrate (Lopressor) 5 mg IVPUSH Q4H PRN PRN Reason: Tachycardia Last Admin: 07/24/20 22:45 Dose: 5 mg Documented by: Ondansetron HCl (Zofran) 4 mg IV Q6H PRN PRN Reason: Nausea/Vomiting Polyethylene Glycol (Miralax) 17 gm PO DAILY PRN PRN Reason: Constipation Simvastatin (Zocor) 20 mg PO BEDTIME [facility] Last Admin: 07/25/20 21:48 Dose: 20 mg Documented by: Vancomycin HCl (Pharmacy To Dose - Vancomycin) 1 dose .XX ASDIRECTED PRN PRN Reason: RX TO DOSE VANCO Zolpidem Tartrate (Ambien) 5 mg PO BEDTIME PRN PRN Reason: Sleep Discontinued Medications Hydralazine HCl (Apresoline) 20 mg IVPUSH Q4H PRN PRN Reason: Hypertension Vancomycin HCl 2 gm/ Sodium (Chloride) 500 mls @ 250 mls/hr IV Q12H [facility] Last Admin: 07/24/20 22:38 Dose: 250 mls/hr Documented by: Piperacillin Sod/Tazobactam (Sod 4.5 gm/ Sodium Chloride) 100 mls @ 25 mls/hr IV Q8H [facility] Last Admin: 07/26/20 08:11 Dose: 25 mls/hr Documented by: Piperacillin Sod/Tazobactam (Sod 4.5 gm/ Sodium Chloride) 100 mls @ 200 mls/hr IV ONETIME ONE Stop: 07/25/20 00:29 Last Admin: 07/25/20 01:30 Dose: 200 mls/hr Documented by: Vancomycin HCl 2 gm/ Sodium (Chloride) 500 mls @ 250 mls/hr IV Q18H [facility] Last Admin: 07/25/20 21:49 Dose: 250 mls/hr Documented by: Magnesium Sulfate (Magnesium Sulfate In Water Premix) 2 gm in 50 mls @ 25 mls/hr IV ONETIME ONE Stop: 07/25/20 13:59 Last Admin: 07/25/20 12:45 Dose: 25 mls/hr Documented by: Influenza Virus Vaccine (Pharmacy To Dose - Influenza Vaccine) 1 each IM ONETIME ONE Stop: 07/25/20 01:45 Influenza Virus Vaccine (Fluzone High-Dose Quad ) 240 mcg IM .ONCE ONE Stop: 07/25/20 02:01 Insulin Glargine (Lantus) 25 unit SUBCUT DAILY [facility] Last Admin: 07/26/20 08:11 Dose: 25 unit Documented by: Sepsis Event Note - Focused Exam Vital Signs: Vital Signs Temp Pulse Resp BP Pulse Ox 07/26/20 10:04 145/77 H 07/26/20 07:26 37.2 C 89 18 145/77 H 95 07/26/20 03:01 37.3 C 81 14 146/72 H 94 L - Problem List & Annotations (1) Bacteremia SNOMED Code(s): 1454753 Code(s): R78.81 - BACTEREMIA Status: Acute Priority: High Current Visit: Yes Onset Date: ~07/25/20 Annotation/Comment:: Blood culture came back as Strep Saslivarius and Strep Mitis. Stopped Zosyn and Vanco and started Amoxicillin 500 mg. Will discuss with lab to assess sensitivity and switch if needed. (2) Diabetes mellitus SNOMED Code(s): 55362660 Code(s): E11.9 - TYPE 2 DIABETES MELLITUS WITHOUT COMPLICATIONS Status: Acute Priority: Medium Current Visit: Yes Onset Date: ~07/26/20 Qualifiers: Diabetes mellitus type: type 2 Diabetes mellitus complication status: with oral complications Annotation/Comment:: A1C was 7.7 when checked. Discussed getting placed on sliding scale insulin once discharged from hospital if he cannot keep blood sugars below 150-180s. (3) LVH (left ventricular hypertrophy) due to hypertensive disease SNOMED Code(s): 556512190 Code(s): I11.9 - HYPERTENSIVE HEART DISEASE WITHOUT HEART FAILURE Status: Acute Priority: Medium Current Visit: Yes Onset Date: ~07/24/20 Qualifiers: Heart failure presence: with heart failure Qualified Code(s): I11.0 - Hypertensive heart disease with heart failure (4) Cellulitis SNOMED Code(s): 617643916 Code(s): L03.90 - CELLULITIS, UNSPECIFIED Status: Acute Current Visit: Yes Onset Date: ~07/25/20 Qualifiers: Site of cellulitis: face Qualified Code(s): L03.211 - Cellulitis of face Annotation/Comment:: no known trauma or skin breaks and hx of prev. dental extractions. - Problem List Review Problem List Initiated/Reviewed/Updated: Yes
[2020-07-26] MEDS: Simvastatin 20 MG Tab PO SCH (20:36)
[2020-07-27] MEDS: Amoxicillin 500 MG Cap PO SCH ×4 (01:04→17:29)
[2020-07-27] MEDS: Lactated Ringers 1,000 ML IV SCH (01:10)
[2020-07-27] MEDS: Heparin Sodium 5,000 Units/ML Vial SUBCUT SCH ×3 (04:34→20:43)
[2020-07-27] MEDS: Levothyroxine 112 MCG Tab PO SCH ×2 (04:35→05:07)
[2020-07-27] MEDS ORDERED: Insulin Lispro 100 Units/ML 3 ML Vial SUBCUT SCH (07:00)
[2020-07-27] MEDS: Aspirin 81 MG Tab.EC PO SCH (08:19)
[2020-07-27] MEDS: Losartan 25 MG Tab PO SCH (08:19)
[2020-07-27] MEDS: Allopurinol 100 MG Tab PO SCH (08:19)
[2020-07-27] MEDS: Insulin Glarg,Human.Rec.Analog 100 Unit/ML SUBCUT SCH (08:20)
[2020-07-27] MEDS: Doxycycline 100 MG Cap PO SCH ×2 (09:10→20:42)
--- NOTE | 2020-07-27 10:55 | PCM.PN ---
<Suri Storm Tahir - Last Filed: 07/27/20 11:05> - General Info Date of Service: 07/27/20 Admission Dx/Problem (Free Text): Bacteremia Subjective Update: 07/25/20 afebrile this am / vss feels like a new person. chills / rigors and sweats resolving/// weakness still present. labs pending. blood cultres growing gram pos cocci in chains. p.e. lungs clear and equal cor rrr with murmur 2/6 [facility] skin chin swelling edema and pink hue slightly indurated and tender. wears cpap) oral multiple worn teeth and no severe gingival bleeding or purulance but slightly criptic around worn teeth / 2 empty sockets without discharge. abd benign no spleen or liver tendernes. m.s : / advanced osteoarthritis features/ no active synovitis. skin no ulcers seen on feet or sacrum . greer growth. Assess; bacteremia and sepsis with gram pos. chains in blood cultures 2/2 with apparent defervescence with zosyn and vanco . possibel sources include recent dental procedures////// skin abscess on chin ///// micro skin tears around edematous// arthritic feet 2 diabetes poor control aic 7.7 and check post prandial b.s.. 3// severe osteoarthritis . 4// lisa on cpap. 5///obesity. 6 dental decay . PLAN cont i.v antibiotics repeat dental eval and possible ct scan of mandible if does not resolve increase activity . dc isolation. assess chf sec to edema. assess contrl dm but suspect post prandial bs poorly controlled and consult diabetes ed. cont antibiotics i.v x at least 72 hours and repeat culture if bacteremia recurs. boh 07/26: Patient states he is feeling well this morning and slept good over the night. Patient states his breathing is good and has no complaints. He has noticed his chin has gotten smaller and is less painful this morning. He has been afebrile for two days. He denies fever, chills, GI upset, palpitations or chest pain. 07/27: Patient states he is feeling well this morning and had an unremarkable night. He is up ambulating in the hallway this morning. He continues to be afebrile with stable vitals. He was switched to oral antibiotics yesterday. Discussed returning to the dentist as his bacteremia likely came from multiple decaying teeth. Discussed following up for CT scan to assess if there is infection in the bone and also an echo to determine if there is valvular involvement. Patient states understanding and will proceed if scheduled. His jaw swelling is nearly absent and pain is nonexistent. Functional Status: Reports: Pain Controlled, Tolerating Diet, Urinating - Review of Systems General: Reports: No Symptoms HEENT: Reports: No Symptoms Pulmonary: Reports: No Symptoms Cardiovascular: Reports: No Symptoms Gastrointestinal: Reports: No Symptoms Genitourinary: Reports: No Symptoms Musculoskeletal: Reports: No Symptoms Skin: Reports: No Symptoms Neurological: Reports: No Symptoms Psychiatric: Reports: No Symptoms - Patient Data Vitals - Most Recent: Last Vital Signs Temp 98.2 F 07/27/20 07:20 Pulse 72 07/27/20 07:20 Resp 20 07/27/20 07:20 BP 155/87 H 07/27/20 08:19 Pulse Ox 94 L 07/27/20 07:20 Weight - Most Recent: 152.588 kg I&O - Last 24 Hours: Intake & Output 07/26/20 07/27/20 07/27/20 22:59 06:59 14:59 Intake Total 2121 1364 508 Output Total 1125 950 Balance 996 414 508 Lab Results Last 24 Hours: Laboratory Results - last 24 hr 07/26/20 07/26/20 07/26/20 Range/Units 06:21 10:37 17:00 WBC (4.23-9.07) K/mm3 RBC (4.63-6.08) M/mm3 Hgb (13.7-17.5) gm/dl Hct (40.1-51.0) % MCV (79.0-92.2) fl MCH (25.7-32.2) pg MCHC (32.2-35.5) g/dl RDW Std Deviation (35.1-43.9) fL Plt Count (163-337) K/mm3 MPV (9.4-12.3) fl Neut % (Auto) (34.0-67.9) % Lymph % (Auto) (21.8-53.1) % Swift % (Auto) (5.3-12.2) % Eos % (Auto) (0.8-7.0) Baso % (Auto) (0.1-1.2) % Neut # (Auto) (1.78-5.38) K/mm3 Lymph # (Auto) (1.32-3.57) K/mm3 Swift # (Auto) (0.30-0.82) K/mm3 Eos # (Auto) (0.04-0.54) K/mm3 Baso # (Auto) (0.01-0.08) K/mm3 Sodium (136-145) mEq/L Potassium (3.5-5.1) mEq/L Chloride (98-107) mEq/L Carbon Dioxide (21-32) mEq/L Anion Gap (5-15) BUN (7-18) mg/dL Creatinine (0.7-1.3) mg/dL Est Cr Clr Drug Dosing mL/min Estimated GFR (MDRD) (>60) mL/min BUN/Creatinine Ratio (14-18) Glucose (80-115) mg/dL POC Glucose 118 H 139 H (80-115) mg/dL Calcium (8.5-10.1) mg/dL Magnesium (1.8-2.4) mg/dl C-Reactive Protein (<1.0) mg/dL Procalcitonin 0.84 H ng/mL 07/27/20 07/27/20 07/27/20 Range/Units 05:55 05:55 06:07 WBC 6.67 (4.23-9.07) K/mm3 RBC 4.75 (4.63-6.08) M/mm3 Hgb 13.2 L (13.7-17.5) gm/dl Hct 41.7 (40.1-51.0) % MCV 87.8 (79.0-92.2) fl MCH 27.8 (25.7-32.2) pg MCHC 31.7 L (32.2-35.5) g/dl RDW Std Deviation 50.7 H (35.1-43.9) fL Plt Count 295 (163-337) K/mm3 MPV 9.8 (9.4-12.3) fl Neut % (Auto) 49.5 (34.0-67.9) % Lymph % (Auto) 33.0 (21.8-53.1) % Swift % (Auto) 10.9 (5.3-12.2) % Eos % (Auto) 6.1 (0.8-7.0) Baso % (Auto) 0.4 (0.1-1.2) % Neut # (Auto) 3.29 (1.78-5.38) K/mm3 Lymph # (Auto) 2.20 (1.32-3.57) K/mm3 Swift # (Auto) 0.73 (0.30-0.82) K/mm3 Eos # (Auto) 0.41 (0.04-0.54) K/mm3 Baso # (Auto) 0.03 (0.01-0.08) K/mm3 Sodium 141 (136-145) mEq/L Potassium 3.9 (3.5-5.1) mEq/L Chloride 106 (98-107) mEq/L Carbon Dioxide 22 (21-32) mEq/L Anion Gap 16.9 H (5-15) BUN 25 H (7-18) mg/dL Creatinine 1.8 H (0.7-1.3) mg/dL Est Cr Clr Drug Dosing 46.30 mL/min Estimated GFR (MDRD) 38 (>60) mL/min BUN/Creatinine Ratio 13.9 L (14-18) Glucose 136 H (80-115) mg/dL POC Glucose 123 H (80-115) mg/dL Calcium 8.6 (8.5-10.1) mg/dL Magnesium 2.1 (1.8-2.4) mg/dl C-Reactive Protein 7.2 H* (<1.0) mg/dL Procalcitonin ng/mL [facility] Results Last 24 Hours: Microbiology 07/25/20 09:00 Gram Stain - Final Sputum - Expectorated Sputum Culture - Preliminary Med Orders - Current: Current Medications Acetaminophen (Tylenol) 650 mg PO Q4H PRN PRN Reason: Pain (Mild 1-3)/fever Last Admin: 07/25/20 06:02 Dose: 650 mg Documented by: Hydrocodone Bitart/Acetaminophen ([place] 325-5 Mg) 1 tab PO Q4H PRN PRN Reason: Pain (moderate 4-6) Albuterol/Ipratropium (Duoneb 3.0-0.5 Mg/3 Ml) 3 ml NEB Q4H PRN PRN Reason: Shortness Of Breath/wheezing Allopurinol (Zyloprim) 100 mg PO DAILY [facility] Last Admin: 07/27/20 08:19 Dose: 100 mg Documented by: Amoxicillin (Amoxil) 500 mg PO Q8H [facility] Last Admin: 07/27/20 08:57 Dose: Not Given Documented by: Aspirin (Halfprin) 81 mg PO DAILY [facility] Last Admin: 07/27/20 08:19 Dose: 81 mg Documented by: Bisacodyl (Dulcolax) 5 mg PO DAILY PRN PRN Reason: Constipation Doxycycline Hyclate (Vibramycin) 100 mg PO Q12HR [facility] Last Admin: 07/27/20 09:10 Dose: 100 mg Documented by: Furosemide (Lasix) 20 mg PO Q48H [facility] Last Admin: 07/26/20 10:04 Dose: 20 mg Documented by: Guaifenesin/Phenylephrine HCl (Robitussin Dm) 10 ml PO Q4H PRN PRN Reason: Cough Heparin Sodium (Porcine) (Heparin Sodium) 5,000 units SUBCUT Q8H [facility] Last Admin: 07/27/20 04:34 Dose: 5,000 units Documented by: Hydromorphone HCl (Dilaudid) 0.5 mg IVPUSH Q2H PRN PRN Reason: Pain (severe 7-10) Promethazine HCl 6.25 mg/ (Sodium Chloride) 50.25 mls @ 100 mls/hr IV Q6H PRN PRN Reason: Nausea/Vomiting Insulin Glargine (Lantus) 35 unit SUBCUT DAILY [facility] Last Admin: 07/27/20 08:20 Dose: 35 unit Documented by: Insulin Human Lispro (Humalog) 0 unit SUBCUT TIDMEALS [facility]; Protocol Levothyroxine Sodium (Levothyroxine) 112 mcg PO ACBREAKFAST [facility] Last Admin: 07/27/20 05:07 Dose: Not Given Documented by: Losartan Potassium (Cozaar) 50 mg PO DAILY [facility] Last Admin: 07/27/20 08:19 Dose: 50 mg Documented by: Metoprolol Tartrate (Lopressor) 5 mg IVPUSH Q4H PRN PRN Reason: Tachycardia Last Admin: 07/24/20 22:45 Dose: 5 mg Documented by: Ondansetron HCl (Zofran) 4 mg IV Q6H PRN PRN Reason: Nausea/Vomiting Polyethylene Glycol (Miralax) 17 gm PO DAILY PRN PRN Reason: Constipation Simvastatin (Zocor) 20 mg PO BEDTIME [facility] Last Admin: 07/26/20 20:36 Dose: 20 mg Documented by: Zolpidem Tartrate (Ambien) 5 mg PO BEDTIME PRN PRN Reason: Sleep Discontinued Medications Hydralazine HCl (Apresoline) 20 mg IVPUSH Q4H PRN PRN Reason: Hypertension Lactated Ringer's (Ringers, Lactated) 1,000 mls @ 125 mls/hr IV ASDIRECTED [facility] Last Admin: 07/27/20 01:10 Dose: 125 mls/hr Documented by: Vancomycin HCl 2 gm/ Sodium (Chloride) 500 mls @ 250 mls/hr IV Q12H [facility] Last Admin: 07/24/20 22:38 Dose: 250 mls/hr Documented by: Piperacillin Sod/Tazobactam (Sod 4.5 gm/ Sodium Chloride) 100 mls @ 25 mls/hr IV Q8H [facility] Last Admin: 07/26/20 08:11 Dose: 25 mls/hr Documented by: Piperacillin Sod/Tazobactam (Sod 4.5 gm/ Sodium Chloride) 100 mls @ 200 mls/hr IV ONETIME ONE Stop: 07/25/20 00:29 Last Admin: 07/25/20 01:30 Dose: 200 mls/hr Documented by: Vancomycin HCl 2 gm/ Sodium (Chloride) 500 mls @ 250 mls/hr IV Q18H [facility] Last Admin: 07/25/20 21:49 Dose: 250 mls/hr Documented by: Magnesium Sulfate (Magnesium Sulfate In Water Premix) 2 gm in 50 mls @ 25 mls/hr IV ONETIME ONE Stop: 07/25/20 13:59 Last Admin: 07/25/20 12:45 Dose: 25 mls/hr Documented by: Influenza Virus Vaccine (Pharmacy To Dose - Influenza Vaccine) 1 each IM ONETIME ONE Stop: 07/25/20 01:45 Influenza Virus Vaccine (Fluzone High-Dose Quad 2019-) 240 mcg IM .ONCE ONE Stop: 07/25/20 02:01 Insulin Glargine (Lantus) 25 unit SUBCUT DAILY [facility] Last Admin: 12/12/20 08:11 Dose: 25 unit Documented by: Insulin Human Lispro (Humalog) [address] [facility]; Protocol Last Admin: 07/27/20 08:19 Dose: Not Given Documented by: Vancomycin HCl (Pharmacy To Dose - Vancomycin) 1 dose .XX ASDIRECTED PRN PRN Reason: RX TO DOSE VANCO - Exam General: Alert, Oriented Neck: Supple Lungs: Clear to Auscultation, Normal Respiratory Effort Cardiovascular: Regular Rate, Regular Rhythm GI/Abdominal Exam: Normal Bowel Sounds, Soft, Non-Tender, No Distention Back Exam: Normal Inspection Extremities: Normal Inspection Skin: Warm, Dry, Intact Neurological: No New Focal Deficit Psy/Mental Status: Alert, Normal Affect, Normal Mood Sepsis Event Note - Evaluation Sepsis Screening Result: No Definite Risk - Focused Exam Vital Signs: Vital Signs Temp Pulse Resp BP Pulse Ox 07/27/20 08:19 155/87 H 07/27/20 07:20 98.2 F 72 20 155/87 H 94 L 07/27/20 04:33 97.7 F 78 16 147/85 H 97 07/27/20 01:06 98.2 F 70 16 135/80 95 - Problem List & Annotations (1) Bacteremia SNOMED Code(s): 9419158 Code(s): R78.81 - BACTEREMIA Status: Acute Priority: High Current Visit: Yes Onset Date: ~07/25/20 Annotation/Comment:: 07/26: Blood culture came back as Strep Saslivarius and Strep Mitis. Stopped Zosyn and Vanco and started Amoxicillin 500 mg. Will discuss with lab to assess sensitivity and switch if needed. 07/27: Sensitivity returned and found the bacteria is sensitive to Tetracyclines. Will add on Doxycycline 100 mg PO q12 hours (2) Diabetes mellitus SNOMED Code(s): 36554601 Code(s): E11.9 - TYPE 2 DIABETES MELLITUS WITHOUT COMPLICATIONS Status: Acute Priority: Medium Current Visit: Yes Onset Date: ~07/26/20 Qualifiers: Diabetes mellitus type: type 2 Diabetes mellitus complication status: with oral complications Annotation/Comment:: A1C was 7.7 when checked. Discussed getting placed on sliding scale insulin once discharged from hospital if he cannot keep blood sugars below 150-180s. - My Orders Last 24 Hours: My Active Orders 07/26/20 12:53 Blood Culture x2 Reflex Set [OM.PC] Stat 07/26/20 13:10 CULTURE BLOOD [BC] Stat 07/26/20 13:15 CULTURE BLOOD [BC] Stat - Assessment Assessment:: 07/25: Assess; bacteremia and sepsis with gram pos. chains in blood cultures 2/2 with apparent defervescence with zosyn and vanco . possibel sources incl ude recent dental procedures////// skin abscess on chin ///// micro skin tears around edematous// arthritic feet 2 diabetes poor control aic 7.7 and check post prandial b.s.. 3// severe osteoarthritis . 4// lisa on cpap. 5///obesity. 6 dental decay . 07/26: Bacteremia: -blood cultures came back and grew Strep Salivarius and Strep Mitis. -discontinued Zosyn and Vanco -Started Amoxicillin 500 mg PO [id number] x10 days -afebrile -CRP slightly increased at 11.5 up from 10.4 Diabetes Mellitus Type II: - AM sugar on 07/25: 174 - Pre lunch sugar: 131 -Post lunch sugar: 187 -Evening sugar: 149 -AM sugar on 07/26: 134 -Discussed using sliding scale insulin if he cannot keep his BS under 150-180s. -Increased Lantus to 35 units. Suspected Heart Failure: -Waiting on echo results to be read and will discuss them at a later date. -Start 20 mg PO lasix 07/27: Bacteremia: -Sensitivity came back that bacteria are sensitive to Tetracyclines -Added on Doxycycline 100 mg PO q12 hours. -waiting on second blood culture to determine if still bacteremic -patient has been afebrile and has no symptoms of systemic infection -CRP has decreased from 11.5 to 7.2 Diabetes Mellitus Type II: -Discussed once discharged he will need to get control of diabetes -encouraged him to do physical activity daily as tolerated to lower his blood sugars -discussed if he cannot lower blood sugars will likely need to go on sliding insulin scale Dental decay: -Will need to return to dentist for likely tooth extraction -discussed he will need to notify the dentist he had recent bacteremia -Will get CT to determine if there is any bone involvement Suspected heart failure: -Echo results returned and showed ejection fraction being 55-60% with normal right ventricular systolic function -heart failure symptoms are stable -Discussed getting repeat echo upon discharge to assess if bacteremia effected heart valves. -continue on Lasix 20 mg PO - Plan Plan:: PLAN cont i.v antibiotics repeat dental eval and possible ct scan of mandible if does not resolve increase activity . dc isolation. assess chf sec to edema. assess contrl dm but suspect post prandial bs poorly controlled and consult diabetes ed. cont antibiotics i.v x at least 72 hours and repeat culture if bacteremia recurs. boh 07/26: -Discontinue Zosyn and Vanco -Start Amoxicillin 500 mg [id number] x10 days -Reassess antibiotic choice one sensitivity comes back -Increase Lantus to 35 units daily -Continue to monitor pre and post prandial sugars -Start 20 mg PO lasix [id number] for lower extremity edema. -Waiting on results of echo done on 07/25. Discussed there might be a possibility of heart failure secondary to edema. -Increase activity as tolerated -Anticipated discharge home tomorrow. 07/27: -Added Doxycycline 100 mg PO q12 hours based on sensitivity. -Continue on Amoxicillin -CHF symptoms are stable and echo results were discussed -Continue on DM medications. Discussed adding sliding scale insulin upon discharge -Continue ambulation as tolerated -Plan to do outpatient CT of mandible and will send back to dentist for tooth extraction -Waiting results of blood culture for definitive discharge date. <Mario Hughes - Last Filed: 07/27/20 18:56> - Patient Data Vitals - Most Recent: Last Vital Signs Temp 36.9 C 07/27/20 16:08 Pulse 84 07/27/20 16:08 Resp 18 07/27/20 16:08 BP 146/87 H 07/27/20 16:08 Pulse Ox 96 07/27/20 16:08 I&O - Last 24 Hours: Intake & Output 07/27/20 07/27/20 07/27/20 06:59 14:59 22:59 Intake Total 1364 508 700 Output Total 950 600 Balance 414 508 100 Lab Results Last 24 Hours: Laboratory Results - last 24 hr 07/26/20 07/27/20 07/27/20 Range/Units 06:21 05:55 05:55 WBC 6.67 (4.23-9.07) K/mm3 RBC 4.75 (4.63-6.08) M/mm3 Hgb 13.2 L (13.7-17.5) gm/dl Hct 41.7 (40.1-51.0) % MCV 87.8 (79.0-92.2) fl MCH 27.8 (25.7-32.2) pg MCHC 31.7 L (32.2-35.5) g/dl RDW Std Deviation 50.7 H (35.1-43.9) fL Plt Count 295 (163-337) K/mm3 MPV 9.8 (9.4-12.3) fl Neut % (Auto) 49.5 (34.0-67.9) % Lymph % (Auto) 33.0 (21.8-53.1) % Swift % (Auto) 10.9 (5.3-12.2) % Eos % (Auto) 6.1 (0.8-7.0) Baso % (Auto) 0.4 (0.1-1.2) % Neut # (Auto) 3.29 (1.78-5.38) K/mm3 Lymph # (Auto) 2.20 (1.32-3.57) K/mm3 Swift # (Auto) 0.73 (0.30-0.82) K/mm3 Eos # (Auto) 0.41 (0.04-0.54) K/mm3 Baso # (Auto) 0.03 (0.01-0.08) K/mm3 Sodium 141 (136-145) mEq/L Potassium 3.9 (3.5-5.1) mEq/L Chloride 106 (98-107) mEq/L Carbon Dioxide 22 (21-32) mEq/L Anion Gap 16.9 H (5-15) BUN 25 H (7-18) mg/dL Creatinine 1.8 H (0.7-1.3) mg/dL Est Cr Clr Drug Dosing 46.30 mL/min Estimated GFR (MDRD) 38 (>60) mL/min BUN/Creatinine Ratio 13.9 L (14-18) Glucose 136 H (80-115) mg/dL POC Glucose (80-115) mg/dL Calcium 8.6 (8.5-10.1) mg/dL Magnesium 2.1 (1.8-2.4) mg/dl C-Reactive Protein 7.2 H* (<1.0) mg/dL Procalcitonin 0.84 H ng/mL 07/27/20 07/27/20 07/27/20 Range/Units 06:07 11:54 16:09 WBC (4.23-9.07) K/mm3 RBC (4.63-6.08) M/mm3 Hgb (13.7-17.5) gm/dl Hct (40.1-51.0) % MCV (79.0-92.2) fl MCH (25.7-32.2) pg MCHC (32.2-35.5) g/dl RDW Std Deviation (35.1-43.9) fL Plt Count (163-337) K/mm3 MPV (9.4-12.3) fl Neut % (Auto) (34.0-67.9) % Lymph % (Auto) (21.8-53.1) % Swift % (Auto) (5.3-12.2) % Eos % (Auto) (0.8-7.0) Baso % (Auto) (0.1-1.2) % Neut # (Auto) (1.78-5.38) K/mm3 Lymph # (Auto) (1.32-3.57) K/mm3 Swift # (Auto) (0.30-0.82) K/mm3 Eos # (Auto) (0.04-0.54) K/mm3 Baso # (Auto) (0.01-0.08) K/mm3 Sodium (136-145) mEq/L Potassium (3.5-5.1) mEq/L Chloride (98-107) mEq/L Carbon Dioxide (21-32) mEq/L Anion Gap (5-15) BUN (7-18) mg/dL Creatinine (0.7-1.3) mg/dL Est Cr Clr Drug Dosing mL/min Estimated GFR (MDRD) (>60) mL/min BUN/Creatinine Ratio (14-18) Glucose (80-115) mg/dL POC Glucose 123 H 127 H 133 H (80-115) mg/dL Calcium (8.5-10.1) mg/dL Magnesium (1.8-2.4) mg/dl C-Reactive Protein (<1.0) mg/dL Procalcitonin ng/mL 07/27/20 Range/Units 17:12 WBC (4.23-9.07) K/mm3 RBC (4.63-6.08) M/mm3 Hgb (13.7-17.5) gm/dl Hct (40.1-51.0) % MCV (79.0-92.2) fl MCH (25.7-32.2) pg MCHC (32.2-35.5) g/dl RDW Std Deviation (35.1-43.9) fL Plt Count (163-337) K/mm3 MPV (9.4-12.3) fl Neut % (Auto) (34.0-67.9) % Lymph % (Auto) (21.8-53.1) % Swift % (Auto) (5.3-12.2) % Eos % (Auto) (0.8-7.0) Baso % (Auto) (0.1-1.2) % Neut # (Auto) (1.78-5.38) K/mm3 Lymph # (Auto) (1.32-3.57) K/mm3 Swift # (Auto) (0.30-0.82) K/mm3 Eos # (Auto) (0.04-0.54) K/mm3 Baso # (Auto) (0.01-0.08) K/mm3 Sodium (136-145) mEq/L Potassium (3.5-5.1) mEq/L Chloride (98-107) mEq/L Carbon Dioxide (21-32) mEq/L Anion Gap (5-15) BUN (7-18) mg/dL Creatinine (0.7-1.3) mg/dL Est Cr Clr Drug Dosing mL/min Estimated GFR (MDRD) (>60) mL/min BUN/Creatinine Ratio (14-18) Glucose (80-115) mg/dL POC Glucose 117 H (80-115) mg/dL Calcium (8.5-10.1) mg/dL Magnesium (1.8-2.4) mg/dl C-Reactive Protein (<1.0) mg/dL Procalcitonin ng/mL [facility] Results Last 24 Hours: Microbiology 07/26/20 13:15 Aerobic Blood Culture - Preliminary Blood - Venous - Lab Draw NO GROWTH AFTER 1 DAY Anaerobic Blood Culture - Preliminary NO GROWTH AFTER 1 DAY 07/26/20 13:10 Aerobic Blood Culture - Preliminary Blood - Venous NO GROWTH AFTER 1 DAY Anaerobic Blood Culture - Preliminary NO GROWTH AFTER 1 DAY 07/25/20 09:00 Gram Stain - Final Sputum - Expectorated Sputum Culture - Final NORMAL RESPIRATORY [facility] 2 DAYS Med Orders - Current: Current Medications Acetaminophen (Tylenol) 650 mg PO Q4H PRN PRN Reason: Pain (Mild 1-3)/fever Last Admin: 07/25/20 06:02 Dose: 650 mg Documented by: Hydrocodone Bitart/Acetaminophen ([place] 325-5 Mg) 1 tab PO Q4H PRN PRN Reason: Pain (moderate 4-6) Albuterol/Ipratropium (Duoneb 3.0-0.5 Mg/3 Ml) 3 ml NEB Q4H PRN PRN Reason: Shortness Of Breath/wheezing Allopurinol (Zyloprim) 100 mg PO DAILY [facility] Last Admin: 07/27/20 08:19 Dose: 100 mg Documented by: Amoxicillin (Amoxil) 500 mg PO Q8H [facility] Last Admin: 07/27/20 17:29 Dose: 500 mg Documented by: Aspirin (Halfprin) 81 mg PO DAILY [facility] Last Admin: 07/27/20 08:19 Dose: 81 mg Documented by: Bisacodyl (Dulcolax) 5 mg PO DAILY PRN PRN Reason: Constipation Doxycycline Hyclate (Vibramycin) 100 mg PO Q12HR [facility] Last Admin: 07/27/20 09:10 Dose: 100 mg Documented by: Furosemide (Lasix) 20 mg PO Q48H [facility] Last Admin: 07/26/20 10:04 Dose: 20 mg Documented by: Guaifenesin/Phenylephrine HCl (Robitussin Dm) 10 ml PO Q4H PRN PRN Reason: Cough Heparin Sodium (Porcine) (Heparin Sodium) 5,000 units SUBCUT Q8H [facility] Last Admin: 07/27/20 13:35 Dose: 5,000 units Documented by: Hydromorphone HCl (Dilaudid) 0.5 mg IVPUSH Q2H PRN PRN Reason: Pain (severe 7-10) Promethazine HCl 6.25 mg/ (Sodium Chloride) 50.25 mls @ 100 mls/hr IV Q6H PRN PRN Reason: Nausea/Vomiting Insulin Glargine (Lantus) 35 unit SUBCUT DAILY [facility] Last Admin: 07/27/20 08:20 Dose: 35 unit Documented by: Insulin Human Lispro (Humalog) 0 unit SUBCUT TIDMEALS [facility]; Protocol Last Admin: 07/27/20 17:22 Dose: Not Given Documented by: Levothyroxine Sodium (Levothyroxine) 112 mcg PO ACBREAKFAST [facility] Last Admin: 07/27/20 05:07 Dose: Not Given Documented by: Losartan Potassium (Cozaar) 50 mg PO DAILY [facility] Last Admin: 07/27/20 08:19 Dose: 50 mg Documented by: Metoprolol Tartrate (Lopressor) 5 mg IVPUSH Q4H PRN PRN Reason: Tachycardia Last Admin: 07/24/20 22:45 Dose: 5 mg Documented by: Ondansetron HCl (Zofran) 4 mg IV Q6H PRN PRN Reason: Nausea/Vomiting Polyethylene Glycol (Miralax) 17 gm PO DAILY PRN PRN Reason: Constipation Simvastatin (Zocor) 20 mg PO BEDTIME [facility] Last Admin: 07/26/20 20:36 Dose: 20 mg Documented by: Zolpidem Tartrate (Ambien) 5 mg PO BEDTIME PRN PRN Reason: Sleep Discontinued Medications Hydralazine HCl (Apresoline) 20 mg IVPUSH Q4H PRN PRN Reason: Hypertension Lactated Ringer's (Ringers, Lactated) 1,000 mls @ 125 mls/hr IV ASDIRECTED [facility] Last Admin: 07/27/20 01:10 Dose: 125 mls/hr Documented by: Vancomycin HCl 2 gm/ Sodium (Chloride) 500 mls @ 250 mls/hr IV Q12H [facility] Last Admin: 07/24/20 22:38 Dose: 250 mls/hr Documented by: Piperacillin Sod/Tazobactam (Sod 4.5 gm/ Sodium Chloride) 100 mls @ 25 mls/hr IV Q8H [facility] Last Admin: 07/26/20 08:11 Dose: 25 mls/hr Documented by: Piperacillin Sod/Tazobactam (Sod 4.5 gm/ Sodium Chloride) 100 mls @ 200 mls/hr IV ONETIME ONE Stop: 07/25/20 00:29 Last Admin: 07/25/20 01:30 Dose: 200 mls/hr Documented by: Vancomycin HCl 2 gm/ Sodium (Chloride) 500 mls @ 250 mls/hr IV Q18H [facility] Last Admin: 07/25/20 21:49 Dose: 250 mls/hr Documented by: Magnesium Sulfate (Magnesium Sulfate In Water Premix) 2 gm in 50 mls @ 25 mls/hr IV ONETIME ONE Stop: 07/25/20 13:59 Last Admin: 07/25/20 12:45 Dose: 25 mls/hr Documented by: Influenza Virus Vaccine (Pharmacy To Dose - Influenza Vaccine) 1 each IM ONETIME ONE Stop: 07/25/20 01:45 Influenza Virus Vaccine (Fluzone High-Dose Quad ) 240 mcg IM .ONCE ONE Stop: 07/25/20 02:01 Insulin Glargine (Lantus) 25 unit SUBCUT DAILY [facility] Last Admin: 07/26/20 08:11 Dose: 25 unit Documented by: Insulin Human Lispro (Humalog) 0 unit SUBCUT TIDMEALS [facility]; Protocol Last Admin: 07/27/20 08:19 Dose: Not Given Documented by: Vancomycin HCl (Pharmacy To Dose - Vancomycin) 1 dose .XX ASDIRECTED PRN PRN Reason: RX TO DOSE VANCO Sepsis Event Note - Focused Exam Vital Signs: Vital Signs Temp Pulse Resp BP Pulse Ox 07/27/20 16:08 36.9 C 84 18 146/87 H 96 07/27/20 11:53 36.9 C 76 16 146/88 H 94 L 07/27/20 08:19 155/87 H 07/27/20 07:20 36.8 C 72 20 155/87 H 94 L - Problem List & Annotations (1) Bacteremia SNOMED Code(s): 1952342 Code(s): R78.81 - BACTEREMIA Status: Acute Priority: High Current Visit: Yes Onset Date: ~07/25/20 Annotation/Comment:: 07/26: Blood culture came back as Strep Saslivarius and Strep Mitis. Stopped Zosyn and Vanco and started Amoxicillin 500 mg. Will discuss with lab to assess sensitivity and switch if needed. 07/27: Sensitivity returned and found the bacteria is sensitive to Tetracyclines. Will add on Doxycycline 100 mg PO q12 hours (2) Diabetes mellitus SNOMED Code(s): 85753904 Code(s): E11.9 - TYPE 2 DIABETES MELLITUS WITHOUT COMPLICATIONS Status: Acute Priority: Medium Current Visit: Yes Onset Date: ~07/26/20 Qualifiers: Diabetes mellitus type: type 2 Diabetes mellitus complication status: with oral complications Annotation/Comment:: A1C was 7.7 when checked. Discussed getting placed on sliding scale insulin once discharged from hospital if he cannot keep blood sugars below 150-180s. (3) LVH (left ventricular hypertrophy) due to hypertensive disease SNOMED Code(s): 732325496 Code(s): I11.9 - HYPERTENSIVE HEART DISEASE WITHOUT HEART FAILURE Status: Acute Priority: Medium Current Visit: Yes Onset Date: ~07/24/20 Qualifiers: Heart failure presence: with heart failure Qualified Code(s): I11.0 - Hypertensive heart disease with heart failure (4) Cellulitis SNOMED Code(s): 088218769 Code(s): L03.90 - CELLULITIS, UNSPECIFIED Status: Acute Current Visit: Yes Onset Date: ~07/25/20 Qualifiers: Site of cellulitis: face Qualified Code(s): L03.211 - Cellulitis of face Annotation/Comment:: no known trauma or skin breaks and hx of prev. dental extractions. - Problem List Review Problem List Initiated/Reviewed/Updated: Yes - My Orders Last 24 Hours: My Active Orders 07/27/20 11:00 Insulin Lispro [HumaLOG] 0 unit SUBCUT TIDMEALS - Plan Plan:: ABOVE. HE IS DOING WELL AND DISCUSSED ORAL ORGANSISMS LIKELY FORM DECAYING TEETH/GINGIVITIS. MAY NEED TO ADD SHORT TERM INSULIN OR INJECTABLE GLP1 INHIBITOR AND WILL SE D.E . AND FOLLOW UP OUTPATIENT. BOH
[2020-07-27] MEDS: Simvastatin 20 MG Tab PO SCH (20:43)
[2020-07-28] MEDS: Amoxicillin 500 MG Cap PO SCH ×2 (00:57→09:03)
[2020-07-28] MEDS: Heparin Sodium 5,000 Units/ML Vial SUBCUT SCH ×2 (05:21→12:21)
[2020-07-28] MEDS: Levothyroxine 112 MCG Tab PO SCH (05:21)
[2020-07-28] MEDS: Furosemide 20 MG Tab PO SCH (09:02)
[2020-07-28] MEDS: Aspirin 81 MG Tab.EC PO SCH (09:02)
[2020-07-28] MEDS: Allopurinol 100 MG Tab PO SCH (09:02)
[2020-07-28] MEDS: Losartan 25 MG Tab PO SCH (09:03)
[2020-07-28] MEDS: Doxycycline 100 MG Cap PO SCH (09:04)
[2020-07-28] MEDS: Insulin Glarg,Human.Rec.Analog 100 Unit/ML SUBCUT SCH (09:15)
--- NOTE | 2020-07-28 11:35 | PCM.DCSUM1 ---
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 He was initially seen in ED yesterday evening due to complaints of subjective fever, chills, diaphoresis, and dyspnea on exertion. Blood culture was drawn and today his culture came back positive for GPC organism with unknown source. He was called in and told to come back to the hospital. Dr Gallagher consulted with me about his case and I recommended for him to come in for inpatient antibiotic treatment. However he left AMA in ED. No he comes back to feeling no better. His initial work up in ED shows a CBC remarkable for Neutrophils of 78%. His coagulation studies are positive for slightly elevated D-dimer. His chemistry is significant for AG of 16.6, BUN of 28, Cr of 2.1, BS of 185, CRP of 7.1, ProBNP of 150, and ESR of 47. His chest x-ray shows no acute abnormal findings. His UA is negative for UTI. Patient is coming for further management of Bacteremia 2/2 GPC with unknown source. 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 Assessment: Acute: Sepsis Bacteremia 2/2 GPC, unknown source but has poor dentition (unlikely source) as he has no oral complaints. We will wait Cx/Sx of specimen. Fever with a temp as high 39.1C Hyperglycemia with DM2 with last A1C level of 6.9 on 07/23/2020 Elevated CRP of 7.1 and ERS of 47 Hypertension Sinus Tachycardia R/o COVID-19 and Viral Illness Class II Obese Chronic: HTN HLD CKD Stage 3 Gout DM2 Obesity Plan: Admit to [facility]. Sepsis protocol however he does not need the required volume resuscitation since he is already hypertensive. IV BS abx with Zosyn and Vancomycin for pharmacy to dose. IV fluid for hydration. Routine AM labs. Monitor LA and Procal levels. Accu-check AC with ISS and home dose LA insulin. Viral Panel. ADA diet. Dietary consult for weight management. PT/OT to assess and treat. Complete physical exam to check for skin lesions, wounds, abscess and all crevices as possible source of infection since he is diabetic. DVT prophylaxis: Heparin SubQ TID. GI prophylaxis:PPI. Code status is full. LOS > 96 hrs due to complexity of presenting illness. Prognosis is guarded. Diagnosis: Stroke: No - Discharge Data Discharge Date: 07/28/20 Discharge Disposition: Home, Self-Care 01 Condition: Good - Referral to Home Health Primary Care Physician: Mario Hughes MD - Patient Summary/Data Consults: Consultations 07/24/20 20:56 Consult to Case Management/Computer Drafter [CONS] Routine OT Evaluation and Treatment [CONS] Routine PT Evaluation and Treatment [CONS] Routine 07/24/20 21:08 Consult to Dietary [Consult to Jelly Maker] [CONS] Routine Hospital Course: 09/25/19 afebrile this am / vss feels like a new person. chills / rigors and sweats resolving/// weakness still present. labs pending. blood cultres growing gram pos cocci in chains. p.e. lungs clear and equal cor rrr with murmur 2/6 [facility] skin chin swelling edema and pink hue slightly indurated and tender. wears cpap) oral multiple worn teeth and no severe gingival bleeding or purulance but slightly criptic around worn teeth / 2 empty sockets without discharge. abd benign no spleen or liver tendernes. m.s : / advanced osteoarthritis features/ no active synovitis. skin no ulcers seen on feet or sacrum . greer growth. Assess; bacteremia and sepsis with gram pos. chains in blood cultures 2/2 with apparent defervescence with zosyn and vanco . possibel sources include recent dental procedures////// skin abscess on chin ///// micro skin tears around edematous// arthritic feet 2 diabetes poor control aic 7.7 and check post prandial b.s.. 3// severe osteoarthritis . 4// lisa on cpap. 5///obesity. 6 dental decay . PLAN cont i.v antibiotics repeat dental eval and possible ct scan of mandible if does not resolve increase activity . dc isolation. assess chf sec to edema. assess contrl dm but suspect post prandial bs poorly controlled and consult diabetes ed. cont antibiotics i.v x at least 72 hours and repeat culture if bacteremia recurs. boh 07/26: Patient states he is feeling well this morning and slept good over the night. Patient states his breathing is good and has no complaints. He has noticed his chin has gotten smaller and is less painful this morning. He has been afebrile for two days. He denies fever, chills, GI upset, palpitations or chest pain. 07/27: Patient states he is feeling well this morning and had an unremarkable night. He is up ambulating in the hallway this morning. He continues to be afebrile with stable vitals. He was switched to oral antibiotics yesterday. Discussed returning to the dentist as his bacteremia likely came from multiple decaying teeth. Discussed following up for CT scan to assess if there is infection in the bone and also an echo to determine if there is valvular involvement. Patient states understanding and will proceed if scheduled. His jaw swelling is nearly absent and pain is nonexistent. Functional Status: Reports: Pain Controlled, Tolerating Diet, Urinating - Patient Instructions Diet: Diabetic Diet Activity: As Tolerated Driving: Do Not Drive Showering/Bathing: May Shower Notify Provider of: Fever Other/Special Instructions: Follow up with PCP next week. - Discharge Plan *PRESCRIPTION DRUG MONITORING PROGRAM REVIEWED*: No *COPY OF PRESCRIPTION DRUG MONITORING REPORT IN PATIENT YG: No Prescriptions/Med Rec: Losartan [Cozaar] 50 mg PO DAILY #60 tablet Insulin Glargine,Hum.Rec.Anlog [Lantus Solostar] 25 unit SQ DAILY 30 Days insuln.pen levoFLOXacin [Levaquin] 750 mg PO Q24H 5 Days tablet Home Medications: Home Meds Aspirin [Halfprin] 81 mg PO DAILY 05/15/17 [History] Levothyroxine [Synthroid] 112 mcg PO DAILY 05/15/17 [History] Pravastatin [Pravachol] 40 mg PO DAILY 05/15/17 [History] Allopurinol [Zyloprim] 100 mg PO DAILY 08/15/17 [History] Insulin Glargine,Hum.Rec.Anlog [Lantus Solostar] 25 unit SQ DAILY 30 Days insuln.pen 07/28/20 [Rx] Losartan [Cozaar] 50 mg PO DAILY #60 tablet 07/28/20 [Rx] levoFLOXacin [Levaquin] 750 mg PO Q24H 5 Days tablet 07/28/20 [Rx] Patient Handouts: Bacteremia, Adult, Sepsis, Self Care, Adult Referrals: Mario Hughes MD [Primary Care Provider] - 08/11/20 9:00 am (Hospital follow-up appointment.) - Discharge Summary/Plan Comment DC Time >30 min.: No Discharge Summary/Plan Comment: He will follow-up with his dentist and primary care provider. Complete all antibiotics. - General Info Date of Service: 07/28/20 Admission Dx/Problem (Free Text: Bacteremia Subjective Update: Patient is doing well and ready for discharge. His appetite is good. No pain. - Patient Data Vitals - Most Recent: Last Vital Signs Temp 98.6 F 07/28/20 08:07 Pulse 78 07/28/20 08:07 Resp 20 07/28/20 08:07 BP 146/75 H 07/28/20 09:03 Pulse Ox 91 L 07/28/20 08:07 Weight - Most Recent: 337 lb 6.4 oz I&O - Last 24 hours: Intake & Output 07/27/20 07/28/20 07/28/20 22:59 06:59 14:59 Intake Total 700 200 180 Output Total 600 450 Balance 100 -250 180 Lab Results - Last 24 hrs: Laboratory Results - last 24 hr 07/27/20 07/27/20 07/27/20 Range/Units 11:54 16:09 17:12 WBC (4.23-9.07) K/mm3 RBC (4.63-6.08) M/mm3 Hgb (13.7-17.5) gm/dl Hct (40.1-51.0) % MCV (79.0-92.2) fl MCH (25.7-32.2) pg MCHC (32.2-35.5) g/dl RDW Std Deviation (35.1-43.9) fL Plt Count (163-337) K/mm3 MPV (9.4-12.3) fl Neut % (Auto) (34.0-67.9) % Lymph % (Auto) (21.8-53.1) % [place] % (Auto) (5.3-12.2) % Eos % (Auto) (0.8-7.0) Baso % (Auto) (0.1-1.2) % Neut # (Auto) (1.78-5.38) K/mm3 Lymph # (Auto) (1.32-3.57) K/mm3 [place] # (Auto) (0.30-0.82) K/mm3 Eos # (Auto) (0.04-0.54) K/mm3 Baso # (Auto) (0.01-0.08) K/mm3 Sodium (136-145) mEq/L Potassium (3.5-5.1) mEq/L Chloride (98-107) mEq/L Carbon Dioxide (21-32) mEq/L Anion Gap (5-15) BUN (7-18) mg/dL Creatinine (0.7-1.3) mg/dL Est Cr Clr Drug Dosing mL/min Estimated GFR (MDRD) (>60) mL/min BUN/Creatinine Ratio (14-18) Glucose (80-115) mg/dL POC Glucose 127 H 133 H 117 H (80-115) mg/dL Calcium (8.5-10.1) mg/dL Magnesium (1.8-2.4) mg/dl 07/28/20 07/28/20 07/28/20 Range/Units 06:16 06:16 06:37 WBC 5.87 (4.23-9.07) K/mm3 RBC 4.27 L (4.63-6.08) M/mm3 Hgb 12.0 L (13.7-17.5) gm/dl Hct 37.6 L (40.1-51.0) % MCV 88.1 (79.0-92.2) fl MCH 28.1 (25.7-32.2) pg MCHC 31.9 L (32.2-35.5) g/dl RDW Std Deviation 50.7 H (35.1-43.9) fL Plt Count 316 (163-337) K/mm3 MPV 9.5 (9.4-12.3) fl Neut % (Auto) 47.8 (34.0-67.9) % Lymph % (Auto) 33.0 (21.8-53.1) % Walton % (Auto) 11.4 (5.3-12.2) % Eos % (Auto) 7.3 H (0.8-7.0) Baso % (Auto) 0.3 (0.1-1.2) % Neut # (Auto) 2.80 (1.78-5.38) K/mm3 Lymph # (Auto) 1.94 (1.32-3.57) K/mm3 Walton # (Auto) 0.67 (0.30-0.82) K/mm3 Eos # (Auto) 0.43 (0.04-0.54) K/mm3 Baso # (Auto) 0.02 (0.01-0.08) K/mm3 Sodium 141 (136-145) mEq/L Potassium 4.0 (3.5-5.1) mEq/L Chloride 107 (98-107) mEq/L Carbon Dioxide 25 (21-32) mEq/L Anion Gap 13.0 (5-15) BUN 22 H (7-18) mg/dL Creatinine 1.5 H (0.7-1.3) mg/dL Est Cr Clr Drug Dosing 55.56 mL/min Estimated GFR (MDRD) 47 (>60) mL/min BUN/Creatinine Ratio 14.7 (14-18) Glucose 124 H (80-115) mg/dL POC Glucose 117 H (80-115) mg/dL Calcium 8.4 L (8.5-10.1) mg/dL Magnesium 2.0 (1.8-2.4) mg/dl 07/28/20 Range/Units 10:59 WBC (4.23-9.07) K/mm3 RBC (4.63-6.08) M/mm3 Hgb (13.7-17.5) gm/dl Hct (40.1-51.0) % MCV (79.0-92.2) fl MCH (25.7-32.2) pg MCHC (32.2-35.5) g/dl RDW Std Deviation (35.1-43.9) fL Plt Count (163-337) K/mm3 MPV (9.4-12.3) fl Neut % (Auto) (34.0-67.9) % Lymph % (Auto) (21.8-53.1) % Walton % (Auto) (5.3-12.2) % Eos % (Auto) (0.8-7.0) Baso % (Auto) (0.1-1.2) % Neut # (Auto) (1.78-5.38) K/mm3 Lymph # (Auto) (1.32-3.57) K/mm3 Walton # (Auto) (0.30-0.82) K/mm3 Eos # (Auto) (0.04-0.54) K/mm3 Baso # (Auto) (0.01-0.08) K/mm3 Sodium (136-145) mEq/L Potassium (3.5-5.1) mEq/L Chloride (98-107) mEq/L Carbon Dioxide (21-32) mEq/L Anion Gap (5-15) BUN (7-18) mg/dL Creatinine (0.7-1.3) mg/dL Est Cr Clr Drug Dosing mL/min Estimated GFR (MDRD) (>60) mL/min BUN/Creatinine Ratio (14-18) Glucose (80-115) mg/dL POC Glucose 112 (80-115) mg/dL Calcium (8.5-10.1) mg/dL Magnesium (1.8-2.4) mg/dl SARI Results - Last 24 hrs: Microbiology 07/26/20 13:15 Aerobic Blood Culture - Preliminary Blood - Venous - Lab Draw NO GROWTH AFTER 1 DAY Anaerobic Blood Culture - Preliminary NO GROWTH AFTER 1 DAY 07/26/20 13:10 Aerobic Blood Culture - Preliminary Blood - Venous NO GROWTH AFTER 1 DAY Anaerobic Blood Culture - Preliminary NO GROWTH AFTER 1 DAY 07/25/20 09:00 Gram Stain - Final Sputum - Expectorated Sputum Culture - Final NORMAL RESPIRATORY [place] 2 DAYS Med Orders - Current: Current Medications Acetaminophen (Tylenol) 650 mg PO Q4H PRN PRN Reason: Pain (Mild 1-3)/fever Last Admin: 07/25/20 06:02 Dose: 650 mg Documented by: Hydrocodone Bitart/Acetaminophen ([place] 325-5 Mg) 1 tab PO Q4H PRN PRN Reason: Pain (moderate 4-6) Albuterol/Ipratropium (Duoneb 3.0-0.5 Mg/3 Ml) 3 ml NEB Q4H PRN PRN Reason: Shortness Of Breath/wheezing Allopurinol (Zyloprim) 100 mg PO DAILY [facility] Last Admin: 07/28/20 09:02 Dose: 100 mg Documented by: Aspirin (Halfprin) 81 mg PO DAILY [facility] Last Admin: 07/28/20 09:02 Dose: 81 mg Documented by: Bisacodyl (Dulcolax) 5 mg PO DAILY PRN PRN Reason: Constipation Furosemide (Lasix) 20 mg PO Q48H [facility] Last Admin: 07/28/20 09:02 Dose: 20 mg Documented by: Guaifenesin/Phenylephrine HCl (Robitussin Dm) 10 ml PO Q4H PRN PRN Reason: Cough Heparin Sodium (Porcine) (Heparin Sodium) 5,000 units SUBCUT Q8H [facility] Last Admin: 07/28/20 05:21 Dose: 5,000 units Documented by: Hydromorphone HCl (Dilaudid) 0.5 mg IVPUSH Q2H PRN PRN Reason: Pain (severe 7-10) Promethazine HCl 6.25 mg/ (Sodium Chloride) 50.25 mls @ 100 mls/hr IV Q6H PRN PRN Reason: Nausea/Vomiting Insulin Glargine (Lantus) 35 unit SUBCUT DAILY [facility] Last Admin: 07/28/20 09:15 Dose: 35 unit Documented by: Insulin Human Lispro (Humalog) 0 unit SUBCUT TIDMEALS [facility]; Protocol Last Admin: 07/28/20 09:00 Dose: Not Given Documented by: Levofloxacin (Levaquin) 750 mg PO Q24H [facility] Levothyroxine Sodium (Levothyroxine) 112 mcg PO ACBREAKFAST [facility] Last Admin: 07/28/20 05:21 Dose: 112 mcg Documented by: Losartan Potassium (Cozaar) 50 mg PO DAILY [facility] Last Admin: 07/28/20 09:03 Dose: 50 mg Documented by: Metoprolol Tartrate (Lopressor) 5 mg IVPUSH Q4H PRN PRN Reason: Tachycardia Last Admin: 07/24/20 22:45 Dose: 5 mg Documented by: Ondansetron HCl (Zofran) 4 mg IV Q6H PRN PRN Reason: Nausea/Vomiting Polyethylene Glycol (Miralax) 17 gm PO DAILY PRN PRN Reason: Constipation Simvastatin (Zocor) 20 mg PO BEDTIME [facility] Last Admin: 07/27/20 20:43 Dose: 20 mg Documented by: Zolpidem Tartrate (Ambien) 5 mg PO BEDTIME PRN PRN Reason: Sleep Discontinued Medications Amoxicillin (Amoxil) 500 mg PO Q8H [facility] Last Admin: 07/28/20 09:03 Dose: 500 mg Documented by: Doxycycline Hyclate (Vibramycin) 100 mg PO Q12HR [facility] Last Admin: 07/28/20 09:04 Dose: 100 mg Documented by: Hydralazine HCl (Apresoline) 20 mg IVPUSH Q4H PRN PRN Reason: Hypertension Lactated Ringer's (Ringers, Lactated) 1,000 mls @ 125 mls/hr IV ASDIRECTED [facility] Last Admin: 07/27/20 01:10 Dose: 125 mls/hr Documented by: Vancomycin HCl 2 gm/ Sodium (Chloride) 500 mls @ 250 mls/hr IV Q12H [facility] Last Admin: 07/24/20 22:38 Dose: 250 mls/hr Documented by: Piperacillin Sod/Tazobactam (Sod 4.5 gm/ Sodium Chloride) 100 mls @ 25 mls/hr IV Q8H [facility] Last Admin: 07/26/20 08:11 Dose: 25 mls/hr Documented by: Piperacillin Sod/Tazobactam (Sod 4.5 gm/ Sodium Chloride) 100 mls @ 200 mls/hr IV ONETIME ONE Stop: 07/25/20 00:29 Last Admin: 07/25/20 01:30 Dose: 200 mls/hr Documented by: Vancomycin HCl 2 gm/ Sodium (Chloride) 500 mls @ 250 mls/hr IV Q18H [facility] Last Admin: 07/25/20 21:49 Dose: 250 mls/hr Documented by: Magnesium Sulfate (Magnesium Sulfate In Water Premix) 2 gm in 50 mls @ 25 mls/hr IV ONETIME ONE Stop: 07/25/20 13:59 Last Admin: 07/25/20 12:45 Dose: 25 mls/hr Documented by: Influenza Virus Vaccine (Pharmacy To Dose - Influenza Vaccine) 1 each IM ONETIME ONE Stop: 07/25/20 01:45 Influenza Virus Vaccine (Fluzone High-Dose Quad ) 240 mcg IM .ONCE ONE Stop: 07/25/20 02:01 Insulin Glargine (Lantus) 25 unit SUBCUT DAILY [facility] Last Admin: 07/26/20 08:11 Dose: 25 unit Documented by: Insulin Human Lispro (Humalog) 0 unit SUBCUT TIDMEALS [facility]; Protocol Last Admin: 07/27/20 08:19 Dose: Not Given Documented by: Vancomycin HCl (Pharmacy To Dose - Vancomycin) 1 dose .XX ASDIRECTED PRN PRN Reason: RX TO DOSE VANCO - Exam Quality Assessment: Denies: Supplemental Oxygen General: Reports: Alert, Oriented HEENT: Reports: Pupils Equal, Mucous Membr. Moist/[place] Neck: Reports: Supple Lungs: Reports: Clear to Auscultation, Normal Respiratory Effort Cardiovascular: Reports: Regular Rate, Regular Rhythm Extremities: Normal Inspection, Normal Range of Motion, Non-Tender, No Pedal Edema, Normal Capillary Refill Skin: Reports: Warm, Dry, Intact Psy/Mental Status: Reports: Alert, Normal Affect, Normal Mood
[2020-07-28 11:44] VITALS: BP 175/92; PULSE 75
[2020-07-28] MEDS ORDERED: Levofloxacin 750 MG Tab PO SCH (12:00)
== END 2020-07-28 14:22 | disposition home or self-care (01) | DRG 872 ==
LOC: JD.ED 20:01 → JD.MS 20:33
PROVIDERS: ADMIT Internal Medicine; ATTEND Internal Medicine
DX: A41.89 Other specified sepsis (principal); A41.9 Sepsis, unspecified organism; E11.65 Type 2 diabetes mellitus with hyperglycemia; R00.0 Tachycardia, unspecified; E66.9 Obesity, unspecified; E78.5 Hyperlipidemia, unspecified; I12.9 Hypertensive chronic kidney disease with stage 1 through stage 4 chronic kidney disease, or unspecified chronic kidney disease; M10.9 Gout, unspecified; E11.22 Type 2 diabetes mellitus with diabetic chronic kidney disease; M19.90 Unspecified osteoarthritis, unspecified site; Z87.820 Personal history of traumatic brain injury; G47.33 Obstructive sleep apnea (adult) (pediatric); Z95.828 Presence of other vascular implants and grafts; K02.9 Dental caries, unspecified; H91.90 Unspecified hearing loss, unspecified ear; H54.7 Unspecified visual loss; E78.00 Pure hypercholesterolemia, unspecified; F32.9 Major depressive disorder, single episode, unspecified; Z90.89 Acquired absence of other organs; N18.30 Chronic kidney disease, stage 3 unspecified; Z20.828 Contact with and (suspected) exposure to other viral communicable diseases
CPT/HCPCS: 0240U; 36415; 80048; 80306; 82962; 83036; 83605; 83735; 84145; 84550; 85025; 86140; 87040; 87070; 87205; 90662; 93306; 97161; 97165; A9270-GY; G0008; J1644; J1815-GY; J2543; J3370; J3475; J3490; J7040; J7050; J7120

== ENCOUNTER 2021-08-11 13:06 | Emergency (ER) | payer MEDICARE, OTHER ==
[2021-08-11 14:16] VITALS: BP 191/123; PULSE 76
[2021-08-11] MEDS ORDERED: Sodium Chloride 0.9% 1,000 ML IV ONE (14:34)
[2021-08-11] MEDS ORDERED: Ketorolac 30 MG/ML SDV IVPUSH ONE (14:34)
--- NOTE | 2021-08-11 16:12 | CT ---
CT abdomen and pelvis Technique: Multiple axial sections were obtained from above the dome of the diaphragm inferiorly through the pubic symphysis. Intravenous contrast was not utilized. Oral contrast has been given. Reconstructed coronal and sagittal images were obtained. Comparison: No prior abdominal imaging is available. Findings: Visualized lung bases show nothing acute. Deformity is noted within several left lower ribs compatible with old healed fractures. Noncontrast appearance of the liver shows no focal abnormality. 2 or 3 calcified gallstones are seen within the gallbladder. Spleen size is normal. Adrenal glands show no nodule. Pancreas shows no discrete abnormality. Kidneys shown a cyst within the right side measuring 2.2 cm. There is slight inflammatory change around the right kidney with mildly prominent right ureter. There is no abnormal calcifications along the course of the right ureter or within the bladder. Please correlate if patient has had improvement of symptoms to suggest removal of an obstructing calculus. Left ureter shows no dilatation or abnormal calcifications. Inferior vena cava filter is noted. Atherosclerotic change is seen within the aorta and iliac vessels. No aneurysm is seen. No retroperitoneal adenopathy seen. No mesenteric abnormalities are seen. Diverticuli are seen within the sigmoid and descending colon with no inflammatory change of diverticulitis. Slight artifact is noted from orthopedic hardware within the right hip. Bone window settings were reviewed which show disc space narrowing and vacuum phenomena within the L4-5 and L5-S1 discs. Vacuum phenomenon is also noted within the L4-5 apophyseal joints. Lesser degenerative change is scattered within other portions of the spine. Impression: 1. Inflammatory change around the right kidney and right ureter. Findings are suspicious for previous right ureteral obstruction. Please correlate if patient has had improvement of symptoms to indicate passage of ureteral calculus. 2. 2 or 3 calcified gallstones are noted. 3. Other findings believed to be incidental as described above. Diagnostic code #3
--- NOTE | 2021-08-11 16:33 | EDM.PDOC ---
ED HPI GENERAL MEDICAL PROBLEM - General Chief Complaint: Abdominal Pain Stated Complaint: KIDNEY STONE Time Seen by Provider: 08/11/21 14:18 Source of Information: Reports: Patient, Family History Limitations: Reports: No Limitations - History of Present Illness INITIAL COMMENTS - FREE TEXT/NARRATIVE: Patient is a 66-year-old gentleman who is complaining of having back pain which is been ongoing for the last several days and then episodic abdominal pain. Patient has a decreased appetite and is feeling nauseous but has not been vomiting he had no diarrhea. He denies any dysuria or hematuria. He denies any bloody or tarry looking stools. He has not been having any fever or chills and denies any cough or headache. Patient's abdominal pain has been and is right lower abdomen and left lower abdomen. He has not been taking anything for his current symptoms. Duration: Day(s): (3 days) Location: Reports: Abdomen, Back Quality: Reports: Ache, Dull, Throbbing Severity: Moderate Improves with: Reports: None Worsens with: Reports: Movement Associated Symptoms: Reports: Loss of Appetite, Malaise. Denies: Nausea/Vomiting Abdominal Pain Score (Numeric/FACES): 4 - Related Data Allergies Allergy/AdvReac Type Severity Reaction Status Date / Time No Known Allergies Allergy Verified 08/11/21 14:17 Home Meds: Home Meds Aspirin [Halfprin] 81 mg PO DAILY 05/15/17 [History] Levothyroxine [Synthroid] 112 mcg PO DAILY 05/15/17 [History] Pravastatin [Pravachol] 40 mg PO DAILY 05/15/17 [History] Allopurinol [Zyloprim] 100 mg PO DAILY 08/15/17 [History] Insulin Glargine,Hum.Rec.Anlog [Lantus Solostar] 25 unit SQ DAILY 30 Days insuln.pen 07/28/20 [Rx] Losartan [Cozaar] 50 mg PO DAILY #60 tablet 07/28/20 [Rx] levoFLOXacin [Levaquin] 750 mg PO Q24H 5 Days tablet 07/28/20 [Rx] Dicyclomine [Bentyl] 20 mg PO TID PRN #20 tab 08/11/21 [Rx] Hydrocodone/Acetaminophen [HYDROcodone-Acetaminophen 5-325 MG] 1 each PO Q4HR PRN #10 tab 08/11/21 [Rx] Promethazine [Phenergan] 25 mg PO Q6H PRN 4 Days #8 tab 08/11/21 [Rx] Past Medical History HEENT History: Reports: Hard of Hearing, Impaired Vision Cardiovascular History: Reports: High Cholesterol, Hypertension Respiratory History: Reports: Other (See Below) Other Respiratory History: 2 pneumonthorax Gastrointestinal History: Reports: None Genitourinary History: Reports: None Musculoskeletal History: Reports: Gout Neurological History: Reports: Other (See Below) Other Neuro History: 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 Immunologic History: Reports: None Oncologic (Cancer) History: Reports: None Dermatologic History: Reports: None - Infectious Disease History Infectious Disease History: Reports: Chicken Pox, Mumps - Past Surgical History Head Surgeries/Procedures: Reports: None HEENT Surgical History: Reports: Tonsillectomy GI Surgical History: Reports: None Male Surgical History: Reports: None Musculoskeletal Surgical History: Reports: Other (See Below) Other Musculoskeletal Surgeries/Procedures:: right femur fracture-fractured ribs. Patient fell from a second story of his home in 2006 and suffered I believe fractures to 10 out of 12 ribs on one side and multiple fractures in the other side with flail chest. He broke his right femur and hip. He had a traumatic brain injury at that time as well. He spent I believe over 3 months in hospital and then several months in rehab before he was able to come home. Social & Family History - Family History Family Medical History: No Pertinent Family History - Tobacco Use Tobacco Use Status *Q: Never Tobacco User Second Hand Smoke Exposure: No - Caffeine Use Caffeine Use: Reports: Coffee - Recreational Drug Use Recreational Drug Use: No - Living Situation & Occupation Living situation: Reports: Occupation: Retired ED ROS GENERAL - Review of Systems Review Of Systems: Comprehensive ROS is negative, except as noted in HPI. Constitutional: Reports: No Symptoms Respiratory: Reports: No Symptoms Cardiovascular: Reports: No Symptoms GI/Abdominal: Reports: Abdominal Pain, Anorexia, Constipation, Decreased Appetite. Denies: Diarrhea : Reports: No Symptoms Musculoskeletal: Reports: No Symptoms Skin: Reports: No Symptoms Neurological: Reports: No Symptoms ED EXAM, GI/ABD - Physical Exam Exam: See Below Exam Limited By: No Limitations General Appearance: Alert, No Apparent Distress Head: Atraumatic Neck: Normal Inspection Respiratory/Chest: No Respiratory Distress, Lungs Clear Cardiovascular: Regular Rate, Rhythm, No Edema, No JVD GI/Abdominal Exam: Normal Bowel Sounds, Soft, Tender (Patient has tenderness in his left lower abdomen and pelvis area. He has no rebound or guarding.) Back Exam: Normal Inspection Extremities: Normal Inspection Neurological: Alert, Oriented Psychiatric: Normal Affect Skin Exam: Warm, Dry Course - Vital Signs Last Recorded V/S: Last Vital Signs Temp 98.1 F 08/11/21 14:15 Pulse 76 08/11/21 14:15 Resp 18 08/11/21 14:15 BP 191/123 H 08/11/21 14:15 Pulse Ox 94 L 08/11/21 14:15 We are unable to draw blood from patient after 4 attempts he refused any additional blood draws. Patient's urine is negative for leukocytes or nitrates but does have small amount of blood in it. His CT scan shows him to have inflammation along his right ureter and kidney consistent with a recently passed kidney stone. Patient is aware of this finding. I will send him home with [facility]. - Orders/Labs/Meds Orders: Active Orders 24 hr Category Date Time Status CBC WITH MANUAL DIFF [HEME] Stat Lab 08/11/21 14:33 Ordered COMPREHENSIVE METABOLIC PN,CMP [CHEM] Stat Lab 08/11/21 14:33 Ordered LACTIC ACID [CHEM] Stat Lab 08/11/21 14:34 Ordered LIPASE [CHEM] Stat Lab 08/11/21 14:33 Ordered UA W/O MICROSCOPIC [URIN] Stat Lab 08/11/21 14:34 Ordered Labs: Laboratory Tests 08/11/21 Range/Units 14:15 Urine Color Yellow (Yellow) Urine Appearance Clear (Clear) Urine pH 5.5 (5.0-8.0) Ur Specific [place] > or = 1.030 (1.005-1.030) Urine Protein 1+ H (Negative) Urine Glucose (UA) Negative (Negative) Urine Ketones Negative (Negative) Urine Occult Blood 1+ H (Negative) Urine Nitrite Negative (Negative) Urine Bilirubin Negative (Negative) Urine Urobilinogen 0.2 (0.2-1.0) Ur Leukocyte Esterase Negative (Negative) Urine RBC 0-5 (0-5) /hpf Urine WBC 0-5 (0-5) /hpf Ur Epithelial Cells 0-5 (0-5) /hpf Urine Bacteria Rare (FEW) /hpf Urine Mucus Few (FEW) /hpf Meds: Medications Discontinued Medications Generic Name Dose Route Start Last Admin Trade Name Chesterq PRN Reason Stop Dose Admin Sodium Chloride 1,000 mls @ 1,000 mls/hr 08/11/21 14:34 Normal Saline IV 08/11/21 15:33 ONETIME ONE Ketorolac Tromethamine 30 mg 08/11/21 14:34 Ketorolac 30 Mg/Ml Sdv IVPUSH 08/11/21 14:35 ONETIME ONE Departure - Departure Time of Disposition: 16:33 Disposition: Home, Self-Care 01 Clinical Impression: Renal colic on right side - Discharge Information Instructions: Renal Colic, [id number] Referrals: Mario Hughes MD [Primary Care Provider] - Additional Instructions: Increase fluid. Keep urine light yellow to clear in color. Symptoms continue follow-up with urologist Dr. PCP. Return to ER if having fever chills, vomiting or increased pain. Motrin with meals. Meds as prescribed. Sepsis Event Note (ED) - Focused Exam Vital Signs: Vital Signs Temp Pulse Resp BP Pulse Ox 08/11/21 14:15 98.1 F 76 18 191/123 H 94 L - My Orders Last 24 Hours: My Active Orders 08/11/21 14:33 CBC WITH MANUAL DIFF [HEME] Stat COMPREHENSIVE METABOLIC PN,CMP [CHEM] Stat LIPASE [CHEM] Stat 08/11/21 14:34 LACTIC ACID [CHEM] Stat UA W/O MICROSCOPIC [URIN] Stat - Assessment/Plan Last 24 Hours: My Active Orders 08/11/21 14:33 CBC WITH MANUAL DIFF [HEME] Stat COMPREHENSIVE METABOLIC PN,CMP [CHEM] Stat LIPASE [CHEM] Stat 08/11/21 14:34 LACTIC ACID [CHEM] Stat UA W/O MICROSCOPIC [URIN] Stat
== END 2021-08-11 16:58 | disposition home or self-care (01) ==
LOC: JD.ED 13:06
DX: N23 Unspecified renal colic (principal); I10 Essential (primary) hypertension; E78.00 Pure hypercholesterolemia, unspecified; E11.9 Type 2 diabetes mellitus without complications; Z79.82 Long term (current) use of aspirin; Z79.4 Long term (current) use of insulin; Z79.899 Other long term (current) drug therapy
CPT/HCPCS: 74176; 74176-26; 99284-25

== ENCOUNTER 2025-05-27 18:00 | Emergency (ER) | payer MEDICARE, OTHER ==
[2025-05-27] MEDS: Diphtheria,Pertussis(Acell),Tetanus Vaccine 0.5 ML Syringe IM ONE (19:12)
[2025-05-27 19:18] LABS: BASOPHILS ABSOLUTE AUTO 0.0 K/mm3 (0.0-0.2); BASOPHILS PERCENT AUTO 0.5 % (0.0-1.0); EOSINOPHILS ABSOLUTE AUTO 0.4 K/mm3 (0.0-0.4); EOSINOPHILS PERCENT AUTO 4.9 % (0.0-6.0); IMMATURE GRAN ABSOLUTE AUTO 0.01 K/mm3 (0.00-0.05); IMMATURE GRAN PERCENT AUTO 0.1 % (0.0-0.4); LYMPHOCYTES ABSOLUTE AUTO 1.7 K/mm3 (1.0-4.8); LYMPHOCYTES PERCENT AUTO 20.1 % (24.0-44.0); MEAN PLATELET VOLUME 9.8 fl (9.4-12.4); MONOCYTES ABSOLUTE AUTO 0.5 K/mm3 (0.0-0.8); MONOCYTES PERCENT AUTO 6.4 % (0.0-8.0); NEUTROPHILS ABSOLUTE AUTO 5.6 K/mm3 (1.8-7.7); NEUTROPHILS PERCENT AUTO 68.0 % (41.0-71.0); NRBC ABSOLUTE 0.00 (0.00-0.02); NRBC PERCENT 0.0 % (0.0-0.2); PLATELET COUNT,PLT 274 K/mm3 (150-400); RED BLOOD CELL COUNT 4.88 M/mm3 (4.52-5.90); WHITE BLOOD CELL COUNT,WBC 8.30 K/mm3 (3.9-11.3)
[2025-05-27 19:42] LABS: A/G RATIO 0.9 (1-2); ALANINE AMINOTRANSFERASE,ALT 26.0 U/L (16-63); ASPARTATE AMNIOTRANSFERASE,AST 18.0 U/L (15-37); BILIRUBIN TOTAL 0.5 mg/dL (0.2-1.0); BLOOD UREA NITROGEN,BUN 28.0 mg/dL (7-18); CARBON DIOXIDE,CO2 25.0 mEq/L (21-32); CHLORIDE,CL 106.0 mEq/L (98-107); CREATINE KINASE,CK 62.0 U/L (39-308); CREATININE 1.8 mg/dL (0.7-1.3); EST CRCL DRUG DOSING (CG) 43.13 mL/min; ESTIMATED GFR 40.0 mL/min (>60); GLUCOSE RANDOM 98.0 mg/dL (70-99); POTASSIUM,K 4.6 mEq/L (3.5-5.1); PROTEIN TOTAL,TP 7.3 g/dl (6.4-8.2); SODIUM,NA 139.0 mEq/L (136-145)
[2025-05-27 19:45] LABS: APPEARANCE,URINE CLEAR (Clear); GLUCOSE,URINE NEGATIVE (Negative); OCCULT BLOOD,URINE NEGATIVE (Negative)
[2025-05-27 19:51] LABS: EPITHELIAL CELLS,URINE 0-5 /hpf (0-5)
[2025-05-27 20:37] VITALS: PULSE 70
[2025-05-27 22:10] VITALS: BP 132/77
== END 2025-05-27 21:55 | disposition home or self-care (01) ==
LOC: JD.ED 18:00
DX: S00.83XA Contusion of other part of head, initial encounter (principal); M25.511 Pain in right shoulder; I10 Essential (primary) hypertension; E78.00 Pure hypercholesterolemia, unspecified; E11.9 Type 2 diabetes mellitus without complications; Z79.82 Long term (current) use of aspirin; Z23 Encounter for immunization; Z86.73 Personal history of transient ischemic attack (TIA), and cerebral infarction without residual deficits; Z79.4 Long term (current) use of insulin; Z79.899 Other long term (current) drug therapy; W10.8XXA Fall (on) (from) other stairs and steps, initial encounter; Y93.89 Activity, other specified
CPT/HCPCS: 36415; 70450; 70450-26; 71250; 71250-26; 72125; 72125-26; 73060-26-RT; 73060-RT; 74176; 74176-26; 80053; 81001; 82550; 83735; 85025; 90471; 90715; 99284; 99285-25